=== PATIENT | female | born 1990 | race African-American/Black ===

== ENCOUNTER 2016-09-17 18:47 | Emergency (ER) | payer SELFPAY ==
[2016-09-17] MEDS ORDERED: DIPHENHYDRAMINE HCL 50 MG/ML VIAL IV ONE (19:12)
[2016-09-17] MEDS ORDERED: ONDANSETRON HCL INJ/PF 4 MG/2 ML SDV IV ONE (19:12)
[2016-09-17] MEDS ORDERED: METOCLOPRAMIDE HCL INJ/PF 10 MG/2 ML SDV IV ONE (19:13)
--- NOTE | 2016-09-17 19:20 | ER Document Report ---
ED Medical Screen (RME) - General Chief Complaint: Headache >24 hrs old Stated Complaint: HEADACHE,VOMITING Mode of Arrival: Ambulatory Information source: Patient TRAVEL OUTSIDE OF THE [place] IN LAST 30 DAYS: No - HPI Onset: This morning Onset/Duration: Sudden Context: MILD ACTIVITY @ WORK, ROUTINE. Quality of pain: Achy, Dull Associated Symptoms: Nausea. denies: Chills, Fever Exacerbated by: Denies Relieved by: Denies Similar symptoms previously: No - THIS H.A. DIFFERENT FROM ALL PRIORS. - Related Data Smoking: Non-smoker Frequency of alcohol use: None Drug Abuse: None Allergies/Adverse Reactions: No Known Allergies Allergy (Verified 09/17/16 19:04) Past Medical History - General Information source: Patient - Social History Cigarette use (# per day): No Chew tobacco use (# tins/day): No Lives with: Spouse/Significant other - Past Medical History Cardiac Medical History: Reports: None Denies: Hx Hypertension Pulmonary Medical History: Reports: None EENT Medical History: Reports: None Neurological Medical History: Reports: Hx Migraine. Denies: Hx Seizures Endocrine Medical History: Reports: None. Denies: Hx Diabetes Mellitus Type 1, Hx Diabetes Mellitus Type 2 Renal/ Medical History: Reports: None. Denies: Hx Peritoneal Dialysis Malignancy Medical History: Reports: None GI Medical History: Reports: None Musculoskeltal Medical History: Reports None Psychiatric Medical History: Reports: None Surgical Hx: Negative - Immunizations Hx Diphtheria, Pertussis, Tetanus Vaccination: Yes Review of Systems - Review of Systems Constitutional: No symptoms reported EENT: No symptoms reported Cardiovascular: No symptoms reported Respiratory: No symptoms reported Gastrointestinal: See HPI Female Genitourinary: denies: Musculoskeletal: No symptoms reported Skin: No symptoms reported Neurological/Psychological: See HPI Physical Exam - Vital signs Vitals: Temp Pulse Resp BP Pulse Ox 98.1 F 75 18 115/82 100 09/17/16 18:54 09/17/16 18:54 09/17/16 18:54 09/17/16 18:54 09/17/16 18:54 Interpretation: Normal. No: Tachycardic, Tachypneic, Febrile - General General appearance: Appears well, Alert In distress: None - HEENT Head: Normocephalic Eyes: Normal Conjunctiva: Normal Ears: Normal Nasal: Normal Mouth/Lips: Normal Mucous membranes: Normal Neck: Supple - Respiratory Respiratory status: No respiratory distress - Cardiovascular Rhythm: Regular - Neurological Neuro grossly intact: Yes Cognition: Normal Orientation: AAOx4 - Psychological Associated symptoms: Normal affect, Normal mood - Skin Skin Temperature: Warm Skin Moisture: Dry Skin Color: Normal Skin Turgor: Elastic Course - Vital Signs Vital signs: Temp Pulse Resp BP Pulse Ox 98.1 F 75 18 115/82 100 09/17/16 18:54 09/17/16 18:54 09/17/16 18:54 09/17/16 18:54 09/17/16 18:54
[2016-09-17] MEDS ORDERED: ONDANSETRON 4 MG TAB.RAPDIS PO ONE (20:17)
--- NOTE | 2016-09-17 20:23 | ER Document Report ---
ED Headache - General Chief Complaint: Headache >24 hrs old Stated Complaint: HEADACHE,VOMITING Mode of Arrival: Ambulatory Information source: Patient Notes: This is a 26-year-old female who presents to the ER for evaluation of headache. She has a prior history of migraines and this headache is similar except that it has lasted longer than her migraines normally do. Her headache began about 9 AM yesterday while she was at work. She states that it began gradually and got worse throughout the day. It is described as a right sided headache that is pounding and throbbing in nature. She has had some associated nausea and vomiting with 2 episodes of emesis today. No fevers or chills. No vision changes. No paresthesias or weakness. She states that she can take Tylenol or Motrin to give her headache but the Tylenol has not helped this time. She states that today her headache is better than yesterday but she still reports pain 4/10 TRAVEL OUTSIDE OF THE [place] IN LAST 30 DAYS: No - Related Data Allergies/Adverse Reactions: No Known Allergies Allergy (Verified 09/17/16 19:04) Past Medical History - General Information source: Patient - Social History Smoking Status: Unknown if Ever Smoked Cigarette use (# per day): No Chew tobacco use (# tins/day): No Frequency of alcohol use: None Drug Abuse: None Lives with: Spouse/Significant other Family History: Reviewed & Not Pertinent, CAD, Hyperlipidemia, Hypertension Patient has suicidal ideation: No Patient has homicidal ideation: No - Past Medical History Cardiac Medical History: Reports: None Denies: Hx Hypertension Pulmonary Medical History: Reports: None EENT Medical History: Reports: None Neurological Medical History: Reports: Hx Migraine. Denies: Hx Seizures Endocrine Medical History: Reports: None. Denies: Hx Diabetes Mellitus Type 1, Hx Diabetes Mellitus Type 2 Renal/ Medical History: Reports: None. Denies: Hx Peritoneal Dialysis Malignancy Medical History: Reports: None GI Medical History: Reports: None Musculoskeltal Medical History: Reports None Psychiatric Medical History: Reports: None Surgical Hx: Negative - Immunizations Hx Diphtheria, Pertussis, Tetanus Vaccination: Yes Hx Pneumococcal Vaccination: 02/14/15 Review of Systems - Review of Systems Notes: REVIEW OF SYSTEMS: CONSTITUTIONAL : Denies fever, chills, or sweats. Denies recent illness. EENT: Denies eye, ear, throat, or mouth pain or symptoms. Denies nasal or sinus congestion. CARDIOVASCULAR: Denies chest pain. RESPIRATORY: Denies cough, cold, or chest congestion. Denies shortness of breath, difficulty breathing, or wheezing. GASTROINTESTINAL: Denies abdominal pain. Otherwise as per history of present illness GENITOURINARY: Denies difficulty urinating, painful urination, burning, frequency, or blood in urine. MUSCULOSKELETAL: Denies neck or back pain or joint pain or swelling. SKIN: Denies rash or skin lesions. HEMATOLOGIC : Denies easy bruising or bleeding. LYMPHATIC: Denies swollen, enlarged glands. NEUROLOGICAL: Denies altered mental status or loss of consciousness. Otherwise as per history of present illness PSYCHIATRIC: Denies anxiety or stress or depression. ALL OTHER SYSTEMS REVIEWED AND NEGATIVE. Physical Exam - Vital signs Vitals: Temp Pulse Resp BP Pulse Ox 98.1 F 75 18 115/82 100 09/17/16 18:54 09/17/16 18:54 09/17/16 18:54 09/17/16 18:54 09/17/16 18:54 - Notes Notes: PHYSICAL EXAMINATION: GENERAL: Well-appearing, well-nourished and in no acute distress. Pleasant and conversant HEAD: Atraumatic, normocephalic. EYES: Pupils equal round and reactive to light, no photophobia, extraocular movements intact, sclera anicteric, conjunctiva are normal. ENT: nares patent, oropharynx clear without exudates. Moist mucous membranes. NECK: Normal range of motion, supple without lymphadenopathy LUNGS: Breath sounds clear to auscultation bilaterally and equal. No wheezes rales or rhonchi. HEART: Regular rate and rhythm without murmurs ABDOMEN: Soft, nontender, normoactive bowel sounds. No guarding, no rebound. No masses appreciated. EXTREMITIES: Normal range of motion, no pitting or edema. No cyanosis. NEUROLOGICAL: Cranial nerves grossly intact. Normal speech, normal gait. No gross focal motor or sensory deficits appreciated. PSYCH: Normal mood, normal affect. SKIN: Warm, Dry, normal turgor, no rashes or lesions noted. Course - Re-evaluation Re-evalutation: 09/17/16 20:[address] reviewed, negative. Patient has an intact, nonfocal neuro exam and is very well appearing. She had been ordered Reglan and Benadryl by the provider in triage, however she is driving and caring for her children and so she declined the medication. 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 Will provide prescription for fioricet for home and pt encouraged to follow up with PCP. We discussed strict return precautions to include increased pain, fever, numbness/weakness, or worsening symptoms or concerns. - Vital Signs Vital signs: Temp Pulse Resp BP Pulse Ox 98.7 F 68 18 109/81 100 09/17/16 21:00 09/17/16 21:00 09/17/16 21:00 09/17/16 21:00 09/17/16 21:00 - Diagnostic Test Radiology reviewed: Reports reviewed - CT head negative Discharge - Discharge Clinical Impression: Migraine headache Qualifiers: Migraine type: unspecified Status migrainosus presence: without status migrainosus Intractability: not intractable Qualified Code(s): G43.909 - Migraine, unspecified, not intractable, without status migrainosus Condition: Stable Disposition: HOME, SELF-CARE Additional Instructions: Migraine Headache The physician feels that your symptoms are due to a migraine attack. Migraines are caused by changes in the blood vessels of the head. Arteries go into spasm, often causing warning symptoms that a headache may begin soon. As the spasm goes away, the vessels dilate and throb, causing the pounding pain of a migraine headache. Migraines often cause nausea and vomiting. The treatment of headaches varies with severity and cause of pain. Not all headaches need pain shots -- in fact, there is evidence that using narcotics for headaches may make them worse in the long run. The physician will determine the therapy that's in your best interest for this particular headache. Medications are available that may prevent migraines, or stop them as they first occur. If one medication is not helpful, try another. If migraines are frequent, be patient -- follow the doctor's recommendations. Call the physician if you are worsening, or if new symptoms arise. REGLAN (METOCLOPRAMIDE): Reglan has been prescribed. This medicine affects the stomach and intestines. It can be used to treat nausea and vomiting, to prevent reflux of stomach acid up into the esophagus, or to increase the contractions of the stomach and intestines. It is often prescribed for esophagitis, and for paralysis of the stomach in diabetics. Reglan can cause either mild restlessness or drowsiness. You should contact the doctor at once if you become extremely restless, anxious, or cannot sleep, or if you develop uncontrollable motions of the lips, tongue, or jaw. Do not take alcohol with this medicine. Do not drive or operate machinery until you have been taking this medicine long enough to know how it affects you. Call the doctor if you develop abdominal pains, lightheadedness, black stool, or blood in the stool or vomitus. USE OF DIPHENHYDRAMINE: Diphenhydramine (Benadryl) is an antihistamine and has been recommended to help treat your headache and to prevent side effects of other medications used to treat headaches. The medication can be repeated four times daily. Age Elixir (12.5 mg/tsp) 25 mg pill adult 1-2 tabs Antihistamines may cause drowsiness, especially with the first dose. Do not operate machinery or drive while under the effects of the medication. Do not combine the medication with alcohol, or with any other medication without talking to your doctor. FOLLOW-UP CARE: If you have been referred to a physician for follow-up care, call the physician s office for an appointment as you were instructed or within the next two days. If you experience worsening or a significant change in your symptoms, notify the physician immediately or return to the Emergency Department at any time for re-evaluation. Prescriptions: Diphenhydramine HCl [Benadryl 25 mg Capsule] 25 mg PO Q4H PRN #15 capsule PRN Reason: Metoclopramide HCl [Reglan 10 mg Tablet] 10 mg PO Q8 PRN #15 tablet PRN Reason: Forms: Return to Work
[2016-09-17 21:10] VITALS: BP 109/81
== END 2016-09-17 21:05 | disposition home or self-care (01) ==
LOC: ER 18:47
DX: G43.909 Migraine, unspecified, not intractable, without status migrainosus (principal); R11.10 Vomiting, unspecified
CPT/HCPCS: 99284; 70450; S0119

== ENCOUNTER → 2016-10-13 | Outpatient (CLI) | payer SELFPAY | LOC: OD 16:52 | PROVIDERS: ATTEND Specialist | DX: O26.899 Other specified pregnancy related conditions, unspecified trimester (principal); R10.2 Pelvic and perineal pain | CPT/HCPCS: 36415; 84702 ==

== ENCOUNTER 2016-10-18 08:23 | Emergency (ER) | payer SELFPAY ==
[2016-10-18 09:35] LABS: ABSOLUTE LYMPHOCYTES (AUTO) 1.7 10^3/uL (0.5-4.7); ABSOLUTE MONOCYTES (AUTO) 0.3 10^3/uL (0.1-1.4); ABSOLUTE NEUT (AUTO) 2.4 10^3/uL (1.7-8.2); APPEARANCE,URINE CLEAR; BASOPHILS % (AUTO) 0.5 % (0-2); BILIRUBIN,URINE NEGATIVE (NEGATIVE); EOSINOPHILS % (AUTO) 0.7 % (0-6); GLUCOSE, URINE NEGATIVE (NEGATIVE); KETONES,URINE NEGATIVE (NEGATIVE); LEUKOCYTE ESTERASE,URINE NEGATIVE (NEGATIVE); LYMPHOCYTES % (AUTO) 37.6 % (13-45); MEAN CORPUSCULAR HEMOGLOBIN 31.2 pg (27.0-33.4); MEAN CORPUSCULAR HGB CONC 33.4 g/dL (32.0-36.0); MEAN CORPUSCULAR VOLUME 93 fl (80-97); MONOCYTES % (AUTO) 7.5 % (3-13); NITRITE,URINE NEGATIVE (NEGATIVE); PROTEIN,URINE NEGATIVE (NEGATIVE); RED BLOOD COUNT 4.18 10^6/uL (3.72-5.28); RED CELL DISTRIBUTION WIDTH 15.2 % (11.5-14.0); SEGMENTED NEUTROPHILS % (AUTO) 53.7 % (42-78); URINE SPECIFIC GRAVITY 1.019; UROBILINOGEN,URINE NEGATIVE mg/dL (<2.0); WHITE BLOOD COUNT 4.5 10^3/uL (4.0-10.5)
[2016-10-18 09:47] LABS: ALANINE AMINOTRANSFERASE 22 U/L (9-52); ALBUMIN 4.5 g/dL (3.5-5.0); ALKALINE PHOSPHATASE 61 U/L (38-126); ANION GAP 10 (5-19); ASPARTATE AMINO TRANSFERASE 15 U/L (14-36); BILIRUBIN,DIRECT 0.2 mg/dL (0.0-0.4); BILIRUBIN,TOTAL 0.6 mg/dL (0.2-1.3); BLOOD UREA NITROGEN 12 mg/dL (7-20); CALCIUM 9.7 mg/dL (8.4-10.2); CARBON DIOXIDE 23 mmol/L (22-30); CHLORIDE 103 mmol/L (98-107); CREATININE RESULT 0.69 mg/dL (0.52-1.25); GLUCOSE 107 mg/dL (75-110); LIPASE 66.2 U/L (23-300); POTASSIUM 3.7 mmol/L (3.6-5.0); SODIUM 136.2 mmol/L (137-145); TOTAL PROTEIN 8.1 g/dL (6.3-8.2)
--- NOTE | 2016-10-18 12:31 | RADIOLOGY REPORT (SQ) ---
EXAM DESCRIPTION: U/S OB TRANSVAG W/DOPPLER COMPLETED DATE/TIME: 10/18/2016 12:17 pm REASON FOR STUDY: +preg LLQ pain COMPARISON: 09/30/2015. TECHNIQUE: Transvaginal static and realtime grayscale images acquired of the pelvis. Additional tonia cted spectral and color Doppler images recorded. All images stored on PACs. [id number] LIMITATIONS: None. FINDINGS: FETUS: Living intrauterine . EGA: 6 week 0 day ROSALINA: 06/13/2017 FHR: 106 beats per minute. SUBCHORIONIC BLEED: Yes. SIZE OF BLEED: 1.9 cm maximal dimension. UTERUS: No masses. No anomalies. CERVICAL LENGTH: 3.2 cm. Closed. RIGHT ADNEXA: Normal ovary with normal vascular flow. Trace right periadnexal free fluid. No adnexal masses. LEFT ADNEXA: Normal ovary with normal vascular flow. No adnexal free fluid. Hypoechoic 2.5 cm presumed corpus luteum. FREE FLUID: None. OTHER: No other significant finding. IMPRESSION: LIVING INTRAUTERINE . EGA 6 week 0 day. Small subchorionic hematoma. Trimester of : First - 0 to 13 weeks. TECHNICAL DOCUMENTATION: JOB ID: [id number] [employer]- All Rights Reserved
[2016-10-18 12:57] VITALS: BP 111/44
--- NOTE | 2016-10-18 13:18 | ER Document Report ---
ED General - General Chief Complaint: Abdominal Pain Stated Complaint: ABDOMINAL PAIN Time Seen by Provider: 10/18/16 09:36 TRAVEL OUTSIDE OF THE [place] IN LAST 30 DAYS: No - HPI Patient complains to provider of: Vaginal spotting abdominal cramping left lower quadrant Notes: There is a with 1 miscarriage in the past coming in for left lower quadrant abdominal cramping and vaginal spotting. Patient denies fever chills nausea vomiting denies any recent intercourse or any objects inserted into her vagina. States light spotting. - Related Data Allergies/Adverse Reactions: No Known Allergies Allergy (Verified 10/18/16 08:28) Past Medical History - Social History Smoking Status: Unknown if Ever Smoked Family History: Reviewed & Not Pertinent, CAD, Hyperlipidemia, Hypertension Patient has suicidal ideation: No Patient has homicidal ideation: No - Past Medical History Cardiac Medical History: Denies: Hx Hypertension Neurological Medical History: Reports: Hx Migraine. Denies: Hx Seizures Endocrine Medical History: Denies: Hx Diabetes Mellitus Type 1, Hx Diabetes Mellitus Type 2 Renal/ Medical History: Denies: Hx Peritoneal Dialysis - Immunizations Hx Diphtheria, Pertussis, Tetanus Vaccination: Yes Hx Pneumococcal Vaccination: 02/14/15 Review of Systems - Review of Systems Constitutional: No symptoms reported EENT: No symptoms reported Cardiovascular: No symptoms reported Respiratory: No symptoms reported Gastrointestinal: No symptoms reported Genitourinary: No symptoms reported Female Genitourinary: Vaginal bleeding Musculoskeletal: No symptoms reported Skin: No symptoms reported Hematologic/Lymphatic: No symptoms reported Neurological/Psychological: No symptoms reported Physical Exam - Vital signs Vitals: Temp Pulse Resp BP Pulse Ox 98.6 F 78 16 115/63 100 10/18/16 08:27 10/18/16 08:27 10/18/16 08:27 10/18/16 08:27 10/18/16 08:27 Interpretation: Normal - General General appearance: Appears well, Alert - HEENT Head: Normocephalic, Atraumatic Eyes: Normal Pupils: PERRL - Respiratory Respiratory status: No respiratory distress Chest status: Nontender Breath sounds: Normal Chest palpation: Normal - Cardiovascular Rhythm: Regular Heart sounds: Normal auscultation Murmur: No - Abdominal Inspection: Normal Distension: No distension Bowel sounds: Normal Tenderness: Nontender Organomegaly: No organomegaly - Back Back: Normal, Nontender - Extremities General upper extremity: Normal inspection, Nontender, Normal color, Normal ROM , Normal temperature General lower extremity: Normal inspection, Nontender, Normal color, Normal ROM , Normal temperature, Normal weight bearing. No: Luci's sign - Neurological Neuro grossly intact: Yes Cognition: Normal Orientation: AAOx4 [place] Coma Scale Eye Opening: Spontaneous [place] Coma Scale Verbal: Oriented [place] Coma Scale Motor: Obeys Commands [place] Coma Scale Total: 15 Speech: Normal Motor strength normal: LUE, RUE, LLE, RLE Sensory: Normal - Psychological Associated symptoms: Normal affect, Normal mood - Skin Skin Temperature: Warm Skin Moisture: Dry Skin Color: Normal Course - Re-evaluation Re-evalutation: 10/18/16 15:26 Does not reveal any critical etiology. Patient is Rh+. Ultrasound does show an IUP. Patient was educated about threatened miscarriage. - Vital Signs Vital signs: Temp Pulse Resp BP Pulse Ox 98.0 F 78 16 111/44 L 99 10/18/16 12:53 10/18/16 12:53 10/18/16 12:53 10/18/16 12:53 10/18/16 12:53 - Laboratory Result Diagrams: 10/18/16 08:58 10/18/16 08:58 Laboratory results interpreted by me: 10/18/16 10/18/16 08:58 08:58 RDW 15.2 H Sodium 136.2 L Beta HCG, Quant 68849.00 H Discharge - Discharge Clinical Impression: Bleeding in early Instructions: Bleeding During Early ([facility]), ([facility]) Additional Instructions: Please continue to take her vitamins as prescribed. Avoid anything in the vaginaeczematoid no tampons. Light activity. Return to the ER symptoms worsen. Follow-up with her obgyn Follow-up in 48-72 hours for repeat beta hCG testing Forms: Follow-Up Laboratory Testing
== END 2016-10-18 12:57 | disposition home or self-care (01) ==
LOC: ER 08:23
DX: O20.9 Hemorrhage in early pregnancy, unspecified (principal)
CPT/HCPCS: 36415; 76817; 80053; 81001; 83690; 84702; 85025; 86900; 86901; 93976; 99284

== ENCOUNTER → 2017-04-20 | Outpatient (CLI) | payer MEDICAID ==
--- NOTE | 2017-04-20 17:47 | RADIOLOGY REPORT (SQ) ---
EXAM DESCRIPTION: VENOUS UNILATERAL LOWER COMPLETED DATE/TIME: 04/20/2017 5:39 pm REASON FOR STUDY: RLE PAIN M79.604 PAIN IN RIGHT LEG COMPARISON: None. TECHNIQUE: Dynamic and static blackwell scale and color images acquired of the right leg venous system. S elected spectral images acquired with additional compression and augmentation maneuvers. The contrala teral common femoral vein and saphenofemoral junction were also imaged. Images stored on PACS. LIMITATIONS: None. FINDINGS: COMMON FEMORAL: Normal phasicity, compression and augmentation. No visualized echogenic ma terial on blackwell scale. No defects on color images. FEMORAL: Normal compression and augmentation. No visualized echogenic material on blackwell scale. No defe cts on color images. POPLITEAL: Normal compression, augmentation. No visualized echogenic material on blackwell scale. No defec ts on color images. CALF VESSELS: Normal compression, augmentation. No visualized echogenic material on blackwell scale. No de fects on color images. GSV and SSV: Normal compression, augmentation. No visualized echogenic material on blackwell scale. No def ects on color images. ANY DEEP VENOUS INSUFFICIENCY: Not evaluated. ANY EVIDENCE OF POPLITEAL CYST: No. OTHER: No other significant finding. CONTRALATERAL COMMON FEMORAL VEIN AND SAPHENOFEMORAL JUNCTION: Normal phasicity, compression and augmentation. No visualized echogenic material on blackwell scale. No de fects on color images. IMPRESSION: NO EVIDENCE DVT OR SVT IN THE RIGHT LEG. TECHNICAL DOCUMENTATION: JOB ID: [id number] [employer]- All Rights Reserved
== END ==
LOC: SP 17:01
PROVIDERS: ATTEND Midwife
DX: M79.604 Pain in right leg (principal)
CPT/HCPCS: 93971

== ENCOUNTER 2017-05-24 09:17 | Inpatient (IN) | payer MEDICAID ==
[2017-05-24 10:18] LABS: APPEARANCE,URINE SLIGHTLY-CLOUDY; BILIRUBIN,URINE NEGATIVE (NEGATIVE); COLOR,URINE YELLOW; GLUCOSE, URINE NEGATIVE (NEGATIVE); KETONES,URINE TRACE mg/dL (NEGATIVE); LEUKOCYTE ESTERASE,URINE NEGATIVE (NEGATIVE); NITRITE,URINE NEGATIVE (NEGATIVE); PROTEIN,URINE NEGATIVE (NEGATIVE); URINE SPECIFIC GRAVITY 1.021
[2017-05-24 10:33] LABS: URINE AMPHETAMINES SCREEN NEGATIVE; URINE BARBITURATES SCREEN NEGATIVE; URINE BENZODIAZEPINES SCREEN NEGATIVE; URINE COCAINE SCREEN NEGATIVE; URINE MARIJUANA (THC) SCREEN NEGATIVE; URINE METHADONE SCREEN NEGATIVE; URINE PHENCYCLIDINE SCREEN NEGATIVE
[2017-05-24 11:06] LABS: INTERNATIONAL RATION (INR) 0.92
[2017-05-24 11:07] LABS: FIBRINOGEN 528 mg/dL (209-497); PARTIAL THROMBOPLASTIN TIME 25.7 SEC (23.5-35.8)
[2017-05-24 11:14] LABS: ABSOLUTE LYMPHOCYTES (AUTO) 1.5 10^3/uL (0.5-4.7); ABSOLUTE MONOCYTES (AUTO) 0.4 10^3/uL (0.1-1.4); ABSOLUTE NEUT (AUTO) 4.3 10^3/uL (1.7-8.2); BASOPHILS % (AUTO) 0.2 % (0-2); EOSINOPHILS % (AUTO) 0.3 % (0-6); HEMATOCRIT 31.4 % (36.0-47.0); HEMOGLOBIN 10.2 g/dL (12.0-15.5); LYMPHOCYTES % (AUTO) 24.3 % (13-45); MEAN CORPUSCULAR HEMOGLOBIN 29.4 pg (27.0-33.4); MEAN CORPUSCULAR HGB CONC 32.6 g/dL (32.0-36.0); MEAN CORPUSCULAR VOLUME 90 fl (80-97); MONOCYTES % (AUTO) 6.8 % (3-13); PLATELET COUNT 195 10^3/uL (150-450); RED BLOOD COUNT 3.48 10^6/uL (3.72-5.28); RED CELL DISTRIBUTION WIDTH 13.8 % (11.5-14.0); SEGMENTED NEUTROPHILS % (AUTO) 68.4 % (42-78); TOTAL CELLS COUNTED % (AUTO) 100 %; WHITE BLOOD COUNT 6.2 10^3/uL (4.0-10.5)
--- NOTE | 2017-05-24 12:50 | RADIOLOGY REPORT (SQ) ---
EXAM DESCRIPTION: U/S OB LIMITED COMPLETED DATE/TIME: 05/24/2017 12:18 pm REASON FOR STUDY: placenta rule out abruption COMPARISON: No previous this TECHNIQUE: Limited portable transabdominal grayscale ultrasound for evaluation of specific requested obstetrical parameters. LIMITATIONS: None. FINDINGS: Fundal posterior placenta, grade 2. No gross abruption. FHR: 121 beats per minute. PRESENTATION: Cephalic OTHER: No other significant findings. IMPRESSION: LIMITED OBSTETRICAL ULTRASOUND WITH MEASURED PARAMETERS DELINEATED ABOVE. Trimester of : Third trimester - 28 weeks to delivery. TECHNICAL DOCUMENTATION: JOB ID: [id number] [employer]- All Rights Reserved
[2017-05-24 14:32] LABS: FETAL RBC COUNT 0
[2017-05-24 14:34] LABS: KB INTERPRETATION NEGATIVE (NEGATIVE)
[2017-05-24] MEDS ORDERED: OXYTOCIN/NORMAL SALINE 20 UNIT/1,000 ML RTUINJ IV PRN ×2 (16:18→22:10)
[2017-05-24] MEDS ORDERED: DINOPROSTONE 10 MG VAGINAL INSERT.SR PV PRN (16:18)
[2017-05-24] MEDS ORDERED: RINGERS SOLUTION,LACTATED 300 ML IV ONE (16:18)
[2017-05-24] MEDS ORDERED: RINGERS SOLUTION,LACTATED 1,000 ML IV PRN (16:18)
[2017-05-24] MEDS ORDERED: MISOPROSTOL 0.2 MG TABLET ONE (16:23)
[2017-05-24] MEDS ORDERED: EPHEDRINE SULFATE INJ 50 MG/1 ML AMPULE ONE (16:24)
[2017-05-24] MEDS ORDERED: OXYTOCIN/NORMAL SALINE 0 UNIT/0 ML RTUINJ ONE (16:24)
[2017-05-24] MEDS ORDERED: LIDOCAINE 1% INJ-PF (10 MG/ML) 30 ML SDV ONE (16:24)
[2017-05-24] MEDS ORDERED: FENTANYL/BUPIVACAINE/NS/PF 200 MCG/100 ML RTUINJ EPI ONE (16:24)
[2017-05-24] MEDS ORDERED: BUPIVACAINE HCL 0.25 % INJ/PF (2.5 MG/1 ML) 30 ML VIAL ONE (16:24)
[2017-05-24 17:09] LABS: ABSOLUTE LYMPHOCYTES (AUTO) 1.5 10^3/uL (0.5-4.7); ABSOLUTE MONOCYTES (AUTO) 0.4 10^3/uL (0.1-1.4); ABSOLUTE NEUT (AUTO) 5.5 10^3/uL (1.7-8.2); BASOPHILS % (AUTO) 0.2 % (0-2); HEMATOCRIT 29.1 % (36.0-47.0); HEMOGLOBIN 9.6 g/dL (12.0-15.5); LYMPHOCYTES % (AUTO) 20.1 % (13-45); MEAN CORPUSCULAR HEMOGLOBIN 29.6 pg (27.0-33.4); MEAN CORPUSCULAR HGB CONC 33.1 g/dL (32.0-36.0); MEAN CORPUSCULAR VOLUME 90 fl (80-97); MONOCYTES % (AUTO) 5.4 % (3-13); PLATELET COUNT 179 10^3/uL (150-450); RED BLOOD COUNT 3.25 10^6/uL (3.72-5.28); SEGMENTED NEUTROPHILS % (AUTO) 74.3 % (42-78); TOTAL CELLS COUNTED % (AUTO) 100 %; WHITE BLOOD COUNT 7.4 10^3/uL (4.0-10.5)
[2017-05-24] MEDS ORDERED: OXYTOCIN/NORMAL SALINE 20 UNIT/1,000 ML RTUINJ ONE (17:36)
[2017-05-24] MEDS ORDERED: ZOLPIDEM TARTRATE 5 MG TABLET PO PRN (22:10)
[2017-05-24] MEDS ORDERED: MEASLES,MUMPS&RUBELLA VACC/PF 0.5 ML VIAL SUBCUT PRN (22:10)
[2017-05-24] MEDS ORDERED: DIPHENHYDRAMINE HCL 25 MG CAPSULE PO PRN (22:10)
[2017-05-24] MEDS ORDERED: PROMETHAZINE HCL INJ 25 MG/1 ML VIAL IV PRN (22:10)
[2017-05-24] MEDS ORDERED: DIPH/PERTUSS(ACELL)/TETANUS VAC/PF 0.5 ML SYR (>=10YO) IM PRN (22:10)
[2017-05-24] MEDS ORDERED: DIBUCAINE 1% OINTMENT 28 GM TP PRN (22:10)
[2017-05-24] MEDS ORDERED: ACETAMINOPHEN 650 MG SUPP.RECT PR PRN (22:10)
[2017-05-24] MEDS ORDERED: PROMETHAZINE HCL 25 MG SUPP.RECT PR PRN (22:10)
[2017-05-24] MEDS ORDERED: NA PHOS,M-B/NA PHOS,DI-BA (ADULT) 133 ML ENEMA PR PRN (22:10)
[2017-05-24] MEDS ORDERED: BENZOCAINE/MENTHOL AEROSOL SPRAY 56 ML TOP PRN (22:10)
[2017-05-24] MEDS ORDERED: ACETAMINOPHEN WITH CODEINE #3 TABLET PO PRN (22:10)
[2017-05-24] MEDS ORDERED: PSEUDOEPHEDRINE HCL 30 MG TABLET PO PRN (22:10)
[2017-05-24] MEDS ORDERED: GLYCERIN/WITCH HAZEL LEAF 1 EACH MED..PAD TP PRN (22:10)
[2017-05-24] MEDS ORDERED: MAGNESIUM HYDROXIDE SUSP 30 ML UDCUP PO PRN (22:10)
[2017-05-24] MEDS ORDERED: PROMETHAZINE HCL 25 MG TABLET PO PRN (22:10)
[2017-05-24] MEDS ORDERED: ACETAMINOPHEN WITH CODEINE #3 TABLET ONE (23:40)
[2017-05-24] MEDS ORDERED: ACETAMINOPHEN 325 MG TABLET ONE (23:56)
--- NOTE | 2017-05-25 00:19 | Admission Physical ---
Datetime Report Generated by CPN: 05/25/2017 00:19 CURRENT ADMISSION Chief Complaint: Uterine Contractions Indication for Induction: Term, Intrauterine Admit Plan: Admit to Unit; Initiate Labor Augmentation Protocol ALLERGIES Medication Allergies: Yes Medication Allergies: ibuprofen (05/24/2017) Medication Allergies: No Known Allergies (10/18/2016) Medication Allergies: No Known Allergies (01/04/2015) Latex: Latex Allergies Food Allergies: NONE Environmental Allergies: NONE OBSTETRICAL HISTORY EDC: 06/07/2017 00:00 : 4 Para: 3 Term: 3 : 0 SAB: 0 IAB: 0 Ectopic: 0 Livin Cesareans: 0 VBACs: 0 Multiple Births: 0 Gestational Diabetes: Yes Rh Sensitization: No Incompetent Cervix: No SVEN: No Infertility: No ART Treatment: No Uterine Anomaly: No IUGR: No Hx Previous C/S: No Macrosomia: No Hx Loss/Stillborn: No PIH: No Hx : No Placenta Previa/Abruption: No Depression/PP Depression: No PTL/PROM: Yes Post Hemorrhage: No Current Procedures: Ultrasound Obstetrical History Comments: G3- PTL- DEL @ TERM SEE RECORDS Alcohol: No Marijuana : No Cocaine: No Other Illicit Drugs: No Cigarettes: Never Smoker. 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 Heart Disease: No Hosp/Surgery: Yes Autoimmune Disorder: No Anesthetic Complications: No Kidney Disease: No Abnormal Pap Smear: No Neuro/Epilepsy: No Psychiatric Disorders: No Other Medical Diseases: No Hepatitis/Liver Disease: No Significant Family History: No Varicosities/Phlebitis: No Trauma/Violence : No Thyroid Dysfunction: No Medical History Comments: CHILDBIRTH INFECTIOUS HISTORY Gonorrhea: No Genital Herpes: No Chlamydia: No Tuberculosis: No Syphilis: No Hepatitis: No HIV/AIDS Exposure: No Rash or Viral Illness: No HPV: No PHYSICAL EXAM General: Normal HEENT: Normal Neurologic: Normal Thyroid: Normal Heart: Normal Lungs: Normal Breast: Normal Back: Normal Abdomen: Normal Genitourinary Exam: Normal Extremities: Normal DTRs: Normal Pelvic Type: Adequate Vital Signs: Reviewed VAGINAL EXAM Dilatation: 4 Effacement: 80 Station: 0 MEMBRANES Membranes: Ruptured Amniotic Fluid Color: Bloody FETUS A EGA: 38.0 Monitoring: External US FHR- Baseline: 130 Variability: Moderate 6-25bpm Accelerations: 15X15 Decelerations: None FHR Category: Category I Presentation: Vertex Admit Comment: 27 yo EDC 06/07/2017 EGA 38 weeks s/p fall on ice this morning labs drawn- wnl hx; G1 with cleft lip and palate seen by MFM for eval 1 hour gtt elevated- no 3 hour/ taking fasting and rbs reports wnl increased contractions and pelvic pain ctx regular 2-[address] Ortiz admit AROM - bloody no bloody show start pitocin per augmentation protocol pain mgmt prn anticipate PLANS FOR LABOR AND DELIVERY Labor and Delivery: None Pain Management: Epidural Feeding Preference: Breast Benefit of Breast Feed Discussed: Yes Circumcision: Yes INFORMED CONSENT Assignment: Lima Brown MD Signature: with User ID: [email or web address] : with User ID: [email or web address]
[2017-05-25] MEDS ORDERED: ACETAMINOPHEN 325 MG TABLET PO PRN (00:38)
[2017-05-25 07:25] LABS: HEMATOCRIT 23.5 % (36.0-47.0); MEAN CORPUSCULAR HGB CONC 33.6 g/dL (32.0-36.0); MEAN CORPUSCULAR VOLUME 89 fl (80-97); PLATELET COUNT 155 10^3/uL (150-450); RED BLOOD COUNT 2.63 10^6/uL (3.72-5.28); RED CELL DISTRIBUTION WIDTH 14.3 % (11.5-14.0); WHITE BLOOD COUNT 9.5 10^3/uL (4.0-10.5)
[2017-05-25 07:31] LABS: HEMOGLOBIN 7.9 g/dL (12.0-15.5)
--- NOTE | 2017-05-25 09:10 | PDOC PROGRESS REPORT ---
Subjective-OB Subjective: Post Delivery Day: 27 year old. Denies any needs at this time Doing well, resting in room, breast feeding, scant bleeding, no c/o Physical Exam (OB) Vital Signs: Temp Pulse Resp BP Pulse Ox 98.1 F 79 16 108/62 98 05/25/17 08:07 05/25/17 08:07 05/25/17 08:07 05/25/17 08:07 05/25/17 08:07 Intake & Output 05/24/17 05/25/17 05/26/17 06:59 06:59 06:59 Weight 70.15 kg - Lochia Lochia Amount: Scant < 10 ml Lochia Color: Rubra/Red - Abdomen Description: Tender, Soft Hernia Present: No Fundal Description: Firm, Midline Fundal Height: u/u - u/2 Objective-Diagnostic Laboratory: 05/25/17 07:02 05/24/17 05/24/17 05/24/17 09:30 10:52 15:34 WBC 6.2 7.4 RBC 3.48 L 3.25 L Hgb 10.2 L 9.6 L Hct 31.4 L 29.1 L MCV 90 90 MCH 29.4 29.6 MCHC 32.6 33.1 RDW 13.8 14.0 Plt Count 195 179 Seg Neutrophils % 68.4 74.3 Lymphocytes % 24.3 20.1 Monocytes % 6.8 5.4 Eosinophils % 0.3 0.0 Basophils % 0.2 0.2 Absolute Neutrophils 4.3 5.5 Absolute Lymphocytes 1.5 1.5 Absolute Monocytes 0.4 0.4 Absolute Eosinophils 0.0 0.0 Absolute Basophils 0.0 0.0 Urine Color YELLOW Urine Appearance SLIGHTLY-CLOUDY Urine pH 6.0 Ur Specific [place] 1.021 Urine Protein NEGATIVE Urine Glucose (UA) NEGATIVE Urine Ketones TRACE H Urine Blood NEGATIVE Urine Nitrite NEGATIVE Ur Leukocyte Esterase NEGATIVE Blood Type Antibody Screen 05/24/17 05/25/17 15:34 07:02 WBC 9.5 RBC 2.63 L Hgb 7.9 L Hct 23.5 L MCV 89 MCH 30.0 MCHC 33.6 RDW 14.3 H Plt Count 155 Seg Neutrophils % Lymphocytes % Monocytes % Eosinophils % Basophils % Absolute Neutrophils Absolute Lymphocytes Absolute Monocytes Absolute Eosinophils Absolute Basophils Urine Color Urine Appearance Urine pH Ur Specific [place] Urine Protein Urine Glucose (UA) Urine Ketones Urine Blood Urine Nitrite Ur Leukocyte Esterase Blood Type O POSITIVE Antibody Screen NEGATIVE Assessment and Plan(PN) - Assessment and Plan (1) Normal vaginal delivery Is this a current diagnosis for this admission?: Yes (2) Anemia Qualifiers: Anemia type: iron deficiency Is this a current diagnosis for this admission?: Yes - Time Spent with Patient Time with patient: Less than 15 minutes Medications reviewed and adjusted accordingly: Yes - Disposition Anticipated Discharge: Home Within: within 24 hours
[2017-05-25] MEDS: PRENATAL VITAMIN W DHA CAPSULE PO SCH (09:48)
[2017-05-25] MEDS: FERROUS SULFATE 325 MG TABLET PO SCH ×2 (09:49→17:27)
[2017-05-25] MEDS: SENNOSIDES/DOCUSATE 8.6-50 MG 1 EACH TABLET PO SCH (09:49)
[2017-05-25] MEDS: DOCUSATE SODIUM 100 MG CAPSULE PO SCH ×2 (09:49→17:27)
[2017-05-25] MEDS: FAMOTIDINE 20 MG TABLET PO SCH ×2 (09:51→21:14)
[2017-05-26 04:56] LABS: ABSOLUTE EOSINOPHILS # (AUTO) 0.1 10^3/uL (0.0-0.6); ABSOLUTE MONOCYTES (AUTO) 0.9 10^3/uL (0.1-1.4); ABSOLUTE NEUT (AUTO) 6.1 10^3/uL (1.7-8.2); BASOPHILS % (AUTO) 0.1 % (0-2); EOSINOPHILS % (AUTO) 0.9 % (0-6); HEMATOCRIT 26.3 % (36.0-47.0); HEMOGLOBIN 8.9 g/dL (12.0-15.5); LYMPHOCYTES % (AUTO) 29.9 % (13-45); MEAN CORPUSCULAR HEMOGLOBIN 30.3 pg (27.0-33.4); MEAN CORPUSCULAR HGB CONC 33.9 g/dL (32.0-36.0); MEAN CORPUSCULAR VOLUME 89 fl (80-97); MONOCYTES % (AUTO) 8.5 % (3-13); PLATELET COUNT 171 10^3/uL (150-450); RED BLOOD COUNT 2.94 10^6/uL (3.72-5.28); RED CELL DISTRIBUTION WIDTH 13.9 % (11.5-14.0); SEGMENTED NEUTROPHILS % (AUTO) 60.6 % (42-78); TOTAL CELLS COUNTED % (AUTO) 100 %; WHITE BLOOD COUNT 10.1 10^3/uL (4.0-10.5)
[2017-05-26] MEDS ORDERED: NORMAL SALINE 500 ML IV ONE (05:30)
--- NOTE | 2017-05-26 06:54 | RADIOLOGY REPORT (SQ) ---
EXAM DESCRIPTION: CTA of the chest per PE protocol with contrast. CLINICAL HISTORY: CHEST PAIN, SOB, POST . COMPARISON: None Available. TECHNIQUE: CTA of the chest obtained following the uncomplicated intravenous administration of 100.1 mL Isovue-370. 3-D/MIP reformatted images of the chest available for evaluation. FINDINGS: Chest: Mediastinal windows demonstrate an adequate contrast bolus. No pulmonary embolus identified. Evaluation of the subsegmental pulmonary arterial branches of the lung bases is somewhat suboptimal due to respiratory motion artifact. Visualized thyroid gland is unremarkable. Great vessels have normal anatomic configuration. No cardiomegaly, coronary artery atherosclerosis, or pericardial effusion. No abnormalities of the esophagus. Scattered mediastinal lymph nodes are not enlarged by CT criteria. Lung windows demonstrate no consolidation, pneumothorax, or pleural effusion. No abnormalities of the visualized trachea or airways. Limited images of the upper abdomen demonstrate no abnormalities of the visualized liver, spleen, pancreas, adrenal glands, or kidneys. No destructive osseous lesions. DLP: 428.34 mGycm IMPRESSION: 1. No pulmonary embolus identified. This exam was performed according to our departmental dose-optimization program, which includes automated exposure control, adjustment of the mA and/or kV according to patient size and/or use of iterative reconstruction technique.
[2017-05-26] MEDS: FERROUS SULFATE 325 MG TABLET PO SCH ×2 (09:18→17:42)
[2017-05-26] MEDS: PRENATAL VITAMIN W DHA CAPSULE PO SCH (09:19)
[2017-05-26] MEDS: SENNOSIDES/DOCUSATE 8.6-50 MG 1 EACH TABLET PO SCH (09:19)
[2017-05-26] MEDS: DOCUSATE SODIUM 100 MG CAPSULE PO SCH ×2 (09:19→17:43)
[2017-05-26] MEDS: FAMOTIDINE 20 MG TABLET PO SCH ×2 (09:19→21:19)
--- NOTE | 2017-05-26 13:47 | PDOC PROGRESS REPORT ---
Subjective-OB Subjective: Post Delivery Day:2 27 year old G4 now P4 s/p ppd2. Episode of shortness of breath in the middle of the night. Ambulated to bathroom this am without difficulty, feeling better this AM, reports she thinks her problem might have been anxiety. Attempting . Denies any needs at this time Physical Exam (OB) Vital Signs: Temp Pulse Resp BP Pulse Ox 98.2 F 82 16 118/73 100 05/26/17 07:28 05/26/17 07:28 05/26/17 07:28 05/26/17 07:28 05/26/17 07:28 Intake & Output 05/25/17 05/26/17 05/27/17 06:59 06:59 06:59 Intake Total 400 Balance 400 Weight 70.15 kg - General General Appearance: Appears well In distress: None - PIH/Pre-Eclampsia DTR's: 2 + Clonus: Negative Headache: Absent Epigastric Pain: No Visual Changes: No - Episiotomy/Laceration Site Condition: N/A - Lochia Lochia Amount: Scant < 10 ml Lochia Color: Rubra/Red - Abdomen Description: Soft, Round Hernia Present: No Fundal Description: Firm, Midline Fundal Height: u/u - u/2 - Respiratory Respiratory Status: No respiratory distress Chest Status: Nontender Breath sounds: Clear - Cardiovascular Rhythm: Regular Heart Sounds: Normal auscultation - Abdominal Inspection: Normal Distension: No distension - Extremities Upper extremity: Normal inspection Lower extremities: Normal inspection - Neurological Cognition: Normal Orientation: AAOx4 - Psychological Associated symptoms: Normal affect, Normal mood Objective-Diagnostic Laboratory: 05/26/17 04:30 05/26/17 04:30 WBC 10.1 RBC 2.94 L Hgb 8.9 L Hct 26.3 L MCV 89 MCH 30.3 MCHC 33.9 RDW 13.9 Plt Count 171 Seg Neutrophils % 60.6 Lymphocytes % 29.9 Monocytes % 8.5 Eosinophils % 0.9 Basophils % 0.1 Absolute Neutrophils 6.1 Absolute Lymphocytes 3.0 Absolute Monocytes 0.9 Absolute Eosinophils 0.1 Absolute Basophils 0.0 Assessment and Plan(PN) - Assessment and Plan (1) Normal vaginal delivery Is this a current diagnosis for this admission?: Yes (2) Shortness of breath Is this a current diagnosis for this admission?: Yes Plan: normal CT, reviewed with Dr. Brown who recommends hospitalist consult at this time and EKG, continue stay (3) Anemia complicating , third trimester Is this a current diagnosis for this admission?: Yes Plan: inc. dietary iron and feso4 bid (4) Gestational diabetes mellitus (GDM) affecting fourth Is this a current diagnosis for this admission?: Yes Plan: routine pp care. f/u at pp visit (5) Tachycardia Is this a current diagnosis for this admission?: Yes Plan: HR up to 140s while ambulating. Normal CT, reviewed with Dr. Brown who recommends hospitalist consult at this time and EKG, continue stay - Time Spent with Patient Time with patient: 15-25 minutes Medications reviewed and adjusted accordingly: Yes - Disposition Anticipated Discharge: Home Within: within 24 hours
[2017-05-26 14:14] LABS: ABSOLUTE LYMPHOCYTES (AUTO) 1.5 10^3/uL (0.5-4.7); ABSOLUTE MONOCYTES (AUTO) 0.5 10^3/uL (0.1-1.4); ABSOLUTE NEUT (AUTO) 8.6 10^3/uL (1.7-8.2); BASOPHILS % (AUTO) 0.1 % (0-2); EOSINOPHILS % (AUTO) 0.1 % (0-6); HEMATOCRIT 25.9 % (36.0-47.0); HEMOGLOBIN 8.9 g/dL (12.0-15.5); MEAN CORPUSCULAR HEMOGLOBIN 30.5 pg (27.0-33.4); MEAN CORPUSCULAR HGB CONC 34.3 g/dL (32.0-36.0); MEAN CORPUSCULAR VOLUME 89 fl (80-97); MONOCYTES % (AUTO) 4.9 % (3-13); PLATELET COUNT 194 10^3/uL (150-450); RED BLOOD COUNT 2.91 10^6/uL (3.72-5.28); RED CELL DISTRIBUTION WIDTH 14.4 % (11.5-14.0); SEGMENTED NEUTROPHILS % (AUTO) 80.9 % (42-78); TOTAL CELLS COUNTED % (AUTO) 100 %; WHITE BLOOD COUNT 10.6 10^3/uL (4.0-10.5)
--- NOTE | 2017-05-26 17:33 | PDOC CONSULTATION ---
Consultation Consult Date: 05/26/17 Attending physician:: FAZAL PATEL Consult reason:: Shortness of breath and dizziness History of Present Illness Admission Date/PCP: 05/24/17 15:17 AIMEE GUAMAN CNM Patient complains of: Shortness of breath and dizziness. History of Present Illness: JASEN WARNER is a 27 year old female who recently delivered a healthy baby boy experienced a complaint of shortness of breath and chest pain. Patient 's primary doctor ordered a CTA which was normal. Patient states that when she was walking her baby back to the nursery she felt dizzy but did not pass out or lose consciousness. Nursing states that patient was ambulating well and satting 100% however her heart rate was in the 140s. Patient had an EKG that demonstrated normal sinus rhythm with no definite abnormalities noted. Patient states that she wonders if she is experiencing anxiety attacks because she recounts a event where her child was brought to her morn and she became very nervous. Past Medical History Medical History: None Cardiac Medical History: Reports: None Denies: Coronary Artery Disease, Hypertension Neurological Medical History: Reports: Migraine Denies: Seizures Endocrine Medical History: Denies: Diabetes Mellitus Type 1, Diabetes Mellitus Type 2 Hematology: Reports: Anemia Past Surgical History Past Surgical History: Reports: None Social History Information Source: Patient Smoking Status: Unknown if Ever Smoked Frequency of Alcohol Use: None Drugs: None - Advance Directive Resuscitation Status: Full Code Family History Family History: Reviewed & Not Pertinent, CAD, Hyperlipidemia, Hypertension Parental Family History Reviewed: Yes Children Family History Reviewed: Yes Sibling(s) Family History Reviewed.: Yes Medication/Allergy Home Medications: Vit No.129/Iron/Folic [ One Daily Tablet] 1 tab PO DAILY Allergies/Adverse Reactions: ibuprofen [From Motrin] Allergy (Verified 05/24/17 10:01) Review of Systems Constitutional: PRESENT: fatigue. ABSENT: chills, fever(s), headache(s), weight gain, weight loss Eyes: ABSENT: visual disturbances Ears: ABSENT: hearing changes Cardiovascular: PRESENT: chest pain, palpitations. ABSENT: dyspnea on exertion , edema, orthropnea Respiratory: ABSENT: cough, hemoptysis Gastrointestinal: ABSENT: abdominal pain, constipation, diarrhea, hematemesis, hematochezia, nausea, vomiting Genitourinary: ABSENT: dysuria, hematuria Musculoskeletal: ABSENT: joint swelling Integumentary: ABSENT: rash, wounds Neurological: ABSENT: abnormal gait, abnormal speech, confusion, dizziness, focal weakness, syncope Psychiatric: ABSENT: anxiety, depression, homidical ideation, suicidal ideation Endocrine: ABSENT: cold intolerance, heat intolerance, polydipsia, polyuria Hematologic/Lymphatic: ABSENT: easy bleeding, easy bruising Physical Exam Vital Signs: Temp Pulse Resp BP Pulse Ox 97.9 F 91 16 105/61 100 05/26/17 15:51 05/26/17 15:51 05/26/17 15:51 05/26/17 15:51 05/26/17 15:51 Intake & Output 05/25/17 05/26/17 05/27/17 06:59 06:59 06:59 Intake Total 400 240 Balance 400 240 Weight 70.15 kg General appearance: PRESENT: no acute distress, well-developed, well-nourished Head exam: PRESENT: atraumatic, normocephalic Eye exam: PRESENT: conjunctiva pink, EOMI. ABSENT: scleral icterus Ear exam: PRESENT: normal external ear exam Mouth exam: PRESENT: moist, tongue midline Neck exam: ABSENT: carotid bruit, JVD, lymphadenopathy, thyromegaly Respiratory exam: PRESENT: clear to auscultation ella. ABSENT: rales, rhonchi, wheezes Cardiovascular exam: PRESENT: RRR. ABSENT: diastolic murmur, rubs, systolic murmur Pulses: PRESENT: normal dorsalis pedis pul Vascular exam: PRESENT: normal capillary refill GI/Abdominal exam: PRESENT: normal bowel sounds, tenderness. ABSENT: distended , guarding, mass, organolmegaly, rebound Rectal exam: PRESENT: deferred Extremities exam: PRESENT: full ROM. ABSENT: calf tenderness, clubbing, pedal edema Musculoskeletal exam: PRESENT: full ROM Neurological exam: PRESENT: alert, awake, oriented to person, oriented to place , oriented to time, oriented to situation, CN II-XII grossly intact. ABSENT: motor sensory deficit Psychiatric exam: PRESENT: appropriate affect, normal mood. ABSENT: homicidal ideation, suicidal ideation Results Laboratory Results: 05/26/17 13:43 05/26/17 05/26/17 04:30 13:43 WBC 10.1 10.6 H RBC 2.94 L 2.91 L Hgb 8.9 L 8.9 L Hct 26.3 L 25.9 L MCV 89 89 MCH 30.3 30.5 MCHC 33.9 34.3 RDW 13.9 14.4 H Plt Count 171 194 Seg Neutrophils % 60.6 80.9 H Lymphocytes % 29.9 14.0 Monocytes % 8.5 4.9 Eosinophils % 0.9 0.1 Basophils % 0.1 0.1 Absolute Neutrophils 6.1 8.6 H Absolute Lymphocytes 3.0 1.5 Absolute Monocytes 0.9 0.5 Absolute Eosinophils 0.1 0.0 Absolute Basophils 0.0 0.0 Impressions: Obstetrics Ultrasound 05/24/17 11:15 IMPRESSION: LIMITED OBSTETRICAL ULTRASOUND WITH MEASURED PARAMETERS DELINEATED ABOVE. Trimester of : Third trimester - 28 weeks to delivery. Chest/Abdomen CTA 05/26/17 00:00 IMPRESSION: 1. No pulmonary embolus identified. This exam was performed according to our departmental dose-optimization program, which includes automated exposure control, adjustment of the mA and/or kV according to patient size and/or use of iterative reconstruction technique. Assessment & Plan - Diagnosis (1) Near syncope Is this a current diagnosis for this admission?: Yes Plan: We will check 2D echo and orthostatics. Patient CTA of chest demonstrated no evidence of PE (2) Shortness of breath Is this a current diagnosis for this admission?: Yes Plan: CT of chest demonstrates no evidence of PE will check orthostatics and 2D echo. (3) Tachycardia Is this a current diagnosis for this admission?: Yes Plan: We will continue to monitor this could be secondary to anxiety. 2D echo pending (4) Anemia Qualifiers: Anemia type: iron deficiency Is this a current diagnosis for this admission?: Yes Plan: Per Ob (5) Normal vaginal delivery Is this a current diagnosis for this admission?: Yes Plan: per OB (6) Anxiety Is this a current diagnosis for this admission?: Yes Plan: Suspect that patient's presentation is most likely secondary to anxiety/panic attacks however will do additional evaluation before making this her final diagnosis. - Time Time Spent: 30 to 50 Minutes Anticipated discharge: Home
--- NOTE | 2017-05-26 18:32 | EKG REPORT ---
SEVERITY:- BORDERLINE ECG - SINUS RHYTHM BORDERLINE T ABNORMALITIES, ANTERIOR LEADS : Confirmed by: James Sherman MD 26-May-2017 18:32:05
[2017-05-27] MEDS: FAMOTIDINE 20 MG TABLET PO SCH (09:47)
[2017-05-27] MEDS: FERROUS SULFATE 325 MG TABLET PO SCH (09:47)
[2017-05-27] MEDS: DOCUSATE SODIUM 100 MG CAPSULE PO SCH (09:47)
[2017-05-27] MEDS: PRENATAL VITAMIN W DHA CAPSULE PO SCH (09:47)
[2017-05-27] MEDS: SENNOSIDES/DOCUSATE 8.6-50 MG 1 EACH TABLET PO SCH (09:47)
--- NOTE | 2017-05-27 10:30 | PDOC PROGRESS REPORT ---
Subjective-OB Subjective: Post Delivery Day: 27 year old. Denies any needs at this time. Ready to go home. No further dizziness. Physical Exam (OB) Vital Signs: Temp Pulse Resp BP Pulse Ox 98.1 F 64 14 98/58 L 100 05/27/17 09:00 05/27/17 09:00 05/27/17 09:00 05/27/17 09:00 05/27/17 09:00 Intake & Output 05/26/17 05/27/17 05/28/17 06:59 06:59 06:59 Intake Total 400 240 Balance 400 240 - PIH/Pre-Eclampsia DTR's: 2 + Clonus: Negative Headache: Absent Epigastric Pain: No Visual Changes: No - Lochia Lochia Amount: Scant < 10 ml Lochia Color: Rubra/Red - Abdomen Description: Soft, Round Hernia Present: No Bowel Sounds: Normoactive Flatus Presence: Present Stool: Yes Fundal Description: Firm, Midline Fundal Height: u/u - u/2 Objective-Diagnostic Laboratory: 05/26/17 13:43 05/26/17 13:43 WBC 10.6 H RBC 2.91 L Hgb 8.9 L Hct 25.9 L MCV 89 MCH 30.5 MCHC 34.3 RDW 14.4 H Plt Count 194 Seg Neutrophils % 80.9 H Lymphocytes % 14.0 Monocytes % 4.9 Eosinophils % 0.1 Basophils % 0.1 Absolute Neutrophils 8.6 H Absolute Lymphocytes 1.5 Absolute Monocytes 0.5 Absolute Eosinophils 0.0 Absolute Basophils 0.0 Assessment and Plan(PN) - Time Spent with Patient Medications reviewed and adjusted accordingly: Yes - Disposition Anticipated Discharge: Home
--- NOTE | 2017-05-27 10:36 | PDOC DISCHARGE SUMMARY ---
Final Diagnosis Discharge Date: 05/27/17 - Final Diagnosis (1) Anemia complicating , third trimester Is this a current diagnosis for this admission?: Yes (2) Anxiety Is this a current diagnosis for this admission?: Yes (3) Delivery normal Is this a current diagnosis for this admission?: Yes (4) Gestational diabetes mellitus (GDM) affecting fourth Is this a current diagnosis for this admission?: Yes (5) Near syncope Is this a current diagnosis for this admission?: Yes (6) Is this a current diagnosis for this admission?: Yes (7) Shortness of breath Is this a current diagnosis for this admission?: Yes (8) Tachycardia Is this a current diagnosis for this admission?: Yes Discharge Data - Discharge Medication Home Medications: Vit No.129/Iron/Folic [ One Daily Tablet] 1 tab PO DAILY Gestational Age: 38.0 wks Reason(s) for Admission: Onset of Labor Procedures: Ultrasound Intrapartum Procedure(s): Spontaneous Vaginal Delivery - [place] Data Baby 1 Male at 1 minute: 8 at 5 minutes: 9 Weight: 2.977 kg Home with Mother: Yes Complications: No - Diagnosis Test Laboratory: Temp Pulse Resp BP Pulse Ox 98.1 F 64 14 98/58 L 100 05/27/17 09:00 05/27/17 09:00 05/27/17 09:00 05/27/17 09:00 05/27/17 09:00 05/24/17 05/24/17 05/24/17 09:30 10:52 15:34 RBC 3.48 L 3.25 L Hgb 10.2 L 9.6 L Hct 31.4 L 29.1 L Urine Opiates Screen NEGATIVE 05/25/17 05/26/17 05/26/17 07:02 04:30 13:43 RBC 2.63 L 2.94 L 2.91 L Hgb 7.9 L 8.9 L 8.9 L Hct 23.5 L 26.3 L 25.9 L Urine Opiates Screen - Discharge information/Instructions Discharge Activity: Activity As Tolerated, Balance Activity w/Rest, Pelvic Rest , Slowly Increase Activity, No tub bath, Walk Frequently Discharge Diet: Regular Disposition: HOME, SELF-CARE Follow up with: [facility] in: 4, Weeks
[2017-05-27 13:11] VITALS: BP 98/58
--- NOTE | 2017-05-27 18:34 | PDOC PROGRESS REPORT ---
Subjective Progress Note for:: 05/27/17 Subjective:: Patient was seen earlier this morning. Patient was doing well no issues Reason For Visit: SLIP FALL UTERINE CONTRACTIONS Physical Exam Vital Signs: Temp Pulse Resp BP Pulse Ox 98.0 F 68 15 98/58 L 100 05/27/17 13:07 05/27/17 13:07 05/27/17 13:07 05/27/17 13:07 05/27/17 13:07 Intake & Output 05/26/17 05/27/17 05/28/17 06:59 06:59 06:59 Intake Total 400 240 200 Balance 400 240 200 Baby 1 Male 2.977 kg General appearance: PRESENT: no acute distress, well-developed, well-nourished Head exam: PRESENT: atraumatic, normocephalic Eye exam: PRESENT: conjunctiva pink, EOMI. ABSENT: scleral icterus Ear exam: PRESENT: normal external ear exam Mouth exam: PRESENT: moist, tongue midline Neck exam: ABSENT: carotid bruit, JVD, lymphadenopathy, thyromegaly Respiratory exam: PRESENT: clear to auscultation ella. ABSENT: rales, rhonchi, wheezes Cardiovascular exam: PRESENT: RRR. ABSENT: diastolic murmur, rubs, systolic murmur Pulses: PRESENT: normal dorsalis pedis pul Vascular exam: PRESENT: normal capillary refill GI/Abdominal exam: PRESENT: normal bowel sounds, tenderness. ABSENT: distended , guarding, mass, organolmegaly, rebound Rectal exam: PRESENT: deferred Extremities exam: PRESENT: full ROM. ABSENT: calf tenderness, clubbing, pedal edema Neurological exam: PRESENT: alert, awake, oriented to person, oriented to place , oriented to time, oriented to situation, CN II-XII grossly intact. ABSENT: motor sensory deficit Psychiatric exam: PRESENT: appropriate affect, normal mood. ABSENT: homicidal ideation, suicidal ideation Skin exam: PRESENT: dry, intact, warm. ABSENT: cyanosis, rash Results Laboratory Results: 05/26/17 13:43 Impressions: Obstetrics Ultrasound 05/24/17 11:15 IMPRESSION: LIMITED OBSTETRICAL ULTRASOUND WITH MEASURED PARAMETERS DELINEATED ABOVE. Trimester of : Third trimester - 28 weeks to delivery. Chest/Abdomen CTA 05/26/17 00:00 IMPRESSION: 1. No pulmonary embolus identified. This exam was performed according to our departmental dose-optimization program, which includes automated exposure control, adjustment of the mA and/or kV according to patient size and/or use of iterative reconstruction technique. Assessment & Plan - Diagnosis (1) Near syncope Is this a current diagnosis for this admission?: Yes Plan: Prostatic's and 2D echo were normal. (2) Shortness of breath Is this a current diagnosis for this admission?: Yes Plan: CT of chest demonstrates no evidence of PE. Orthostatics and 2D echo were normal. (3) Tachycardia Is this a current diagnosis for this admission?: Yes Plan: Resolved. (4) Anemia Qualifiers: Anemia type: iron deficiency Is this a current diagnosis for this admission?: Yes Plan: Per Ob (5) Normal vaginal delivery Is this a current diagnosis for this admission?: Yes Plan: per OB (6) Anxiety Is this a current diagnosis for this admission?: Yes Plan: Suspect the patient's presentation could be partially due to anxiety. - Time Time Spent with patient: Less than 15 minutes Anticipated discharge: Home - Okay for discharge home.
--- NOTE | 2017-05-27 20:25 | XCELERA REPORT ---
[address] [address] Transthoracic Echocardiogram Report Name: JASEN WARNER Age: 27 yrs Gender: Female : 1990 Patient Status: Inpatient Patient Location: [address] [place] [address] Study Date: 05/27/2017 09:51 AM Height: 63 in Weight: 154 lb BSA: 1.7 m2 Procedure: A complete two-dimensional transthoracic echocardiogram was performed (2D, M-mode, spectral and color flow Doppler). The study was technically adequate with some images being suboptimal in quality. Reason For Study: Dizziness Ordering Physician: MILKA MONTELONGO Performed By: Janina Zuniga Interpretation Summary The left ventricular ejection fraction is normal. Doppler measurements suggest normal left ventricular diastolic function The right ventricular systolic function is normal. The left atrial size is normal. The right atrium is normal in size There is a trace amount of mitral regurgitation There is no mitral valve stenosis. No aortic regurgitation is present. There is no aortic valve stenosis There is a trace or physiologic amount of tricuspid regurgitation Right ventricular systolic pressure is at the upper limits of normal There is no pericardial effusion. The inferior vena cava appeared normal and decreased < 50% with respiration (RAP 10-15 mmHg) MMode/2D Measurements & Calculations RVDd: 3.0 cm LVIDd: 4.8 cm FS: 36.0 % Ao root diam: 2.3 cm IVSd: 0.59 cm LVIDs: 3.1 cm EDV(Teich): 106.9 ml LVPWd: 0.59 cmESV(Teich): 36.9 ml Ao root area: 4.0 cm2 EF(Teich): 65.5 % LVOT diam: 1.7 cm LVOT area: 2.2 cm2 Doppler Measurements & Calculations MV E max lana: MV dec slope: Ao V2 max: LV V1 max P.0 cm/sec 661.8 cm/sec2 153.5 cm/sec 3.4 mmHg MV A max lana: MV dec time: Ao max PG: LV V1 max: 72.5 cm/sec 0.18 sec 9.4 mmHg 92.4 cm/sec MV E/A: 1.6 IRMA(V,D): 1.3 cm2 PA V2 max: PI end-d lana: TR max lana: 117.2 cm/sec 85.1 cm/sec 234.8 cm/sec PA max P.5 mmHg TR max P.1 mmHg Left Ventricle The left ventricle is grossly normal size. There is normal left ventricular wall thickness. The left ventricular ejection fraction is normal. Doppler measurements suggest normal left ventricular diastolic function. No regional wall motion abnormalities noted. Right Ventricle The right ventricle is grossly normal size. There is normal right ventricular wall thickness. The right ventricular systolic function is normal. Atria The right atrium is normal in size. The left atrial size is normal. Interarterial septum not well visualized and not well dopplered. Cannot comment on ASD/PFO presence. Mitral Valve The mitral valve is grossly normal. There is no mitral valve stenosis. There is a trace amount of mitral regurgitation. Aortic Valve The aortic valve is normal in structure and functions normally. There is no aortic valve stenosis. No aortic regurgitation is present. Tricuspid Valve The tricuspid valve is not well visualized, but is grossly normal. There is no tricuspid stenosis. There is a trace or physiologic amount of tricuspid regurgitation. Right ventricular systolic pressure is at the upper limits of normal. Pulmonic Valve The pulmonic valve is not well seen, but is grossly normal. Great Vessels The aortic root is not well visualized but is probably normal size. The inferior vena cava appeared normal and decreased < 50% with respiration (RAP 10-15 mmHg). Effusions There is no pericardial effusion. : MILKA MONTELONGOra, Shyamal
--- NOTE | 2017-05-31 17:07 | Delivery Summary ---
Del Sum A-C Datetime Report Generated by CPN: 05/31/2017 17:07 DELIVERY PERSONNEL DELIVERY PERSONNEL: [id number] Delivery Doctor:: Mickey Sotelo CNM Labor and Delivery Nurse:: Genesis Fang RN Labor and Delivery Nurse:: Argelia Cazares RN Web Database Developer:: Mary Beth Gates RN Batch Operator/STENCIL MACHINE OPERATOR: Tequila Martinez CNA Batch Operator/STENCIL MACHINE OPERATOR: Shannon Hall, ST MATERNAL INFORMATION Delivery Anesthesia: Epidural Medications After Delivery: Pitocin Bolus-Please Comment; Pitocin Drip 20 Units/1000ml NSS Maternal Complications: None Provider Comments: delivery of viable male apgars bulb suctioned on perineum nuchal cord x 1 loose compound right hand infant to abdomen tactile stimulation elicits spont cry placenta intact and to pathology for eval multiple clots uterus firming ebl 400 cc trailing membranes no lacerations pt bonding well with good pain management with epidural do to pelvic pain from fall earlier LABOR SUMMARY EDC: 06/07/2017 00:00 No. Babies in Womb: 1 Attempted: No Labor Anesthesia: Epidural LABOR INFORMATION Reason for Induction: Other Reason for Induction- Other: maternal fall/elective Onset of Labor: 05/24/2017 16:06 Complete Dilatation: 05/24/2017 21:52 Oxytocin: Induction Group B Beta Strep: Negative Antibiotics # of Doses: 0 Steroids Given: None Reason Steroids Not Administered: Not Applicable MEMBRANES Membranes Rupture Method: Artificial Rupture of Membranes: 05/24/2017 16:06 Length of Rupture (hr): 5.80 Amniotic Fluid Color: Bloody Amniotic Fluid Amount: Moderate Amniotic Fluid Odor: Normal STAGES OF LABOR Stage 1 hr: 5 Stage 1 min: 46 Stage 2 hr: 0 Stage 2 min: 2 Stage 3 hr: 0 Stage 3 min: 3 Total Time in Labor hr: 5 Total Time in Labor min: 51 VAGINAL DELIVERY Episiotomy: None Laceration #1: None Laceration Repair: No Laceration Repair: Not Applicable Sponge Count Correct: N/A; Vaginal Sweep Performed Sharps Count Correct: N/A CSECTION DELIVERY Primary Indication: N/A Secondary Indication: N/A CSection Incidence: N/A Labor: N/A Elective: N/A CSection Incision: N/A BABY A INFORMATION Delivery Date/Time: 05/24/2017 21:54 Infant Delivery Date/Time: 05/24/2017 21:54 Method of Delivery: Vaginal Method of Delivery: Vaginal Method of Delivery: Vaginal Born in Route : No : N/A Forceps: N/A Forceps: N/A Vacuum Extraction: N/A Vacuum Extraction: N/A Shoulder Dystocia : No Shoulder Dystocia : No PRESENTATION/POSITION BABY A Presentation: Cephalic Presentation: Cephalic Cephalic Presentation: Vertex Vertex Position: Right Occipital Anterior Breech Presentation: N/A PLACENTA INFORMATION BABY A Placenta Delivery Time : 05/24/2017 21:57 Placenta Method of Delivery: Spontaneous Placenta Status: Delivered SCORES BABY A Heart Rate 1 min: >100 bpm Resp Effort 1 min: Good Cry Reflex Irritability 1 min: Cough or Sneeze or Pulls Away Muscle Tone 1 min: Active Motion Color 1 min: Blue/Pale Resuscitation Effort 1 min: Tactile Stimulation SCORE 1 MIN: 8 Heart Rate 5 min: >100 bpm Resp Effort 5 min: Good Cry Reflex Irritability 5 min: Cough or Sneeze or Pulls Away Muscle Tone 5 min: Active Motion Color 5 min: Body Esperanza, Extremities Blue Resuscitation Effort 5 min: Tactile Stimulation SCORE 5 MIN: 9 INFANT INFORMATION BABY A Gestational Age at Delivery: 38.0 Gestational Status: Early Term- 37- 38.6 Weeks Infant Outcome : Liveborn Infant Condition : Stable Infant Condition : Stable Sex: Male Sex: Male Infant Sex: Male IDENTIFICATION BABY A Verification Date/Time: 05/24/2017 22:06 ID Band Number: [id number] Mother's Name Verified: Yes RN Verifying : B ShahTORIBIO Additional Verifying Personnel: D Carlos, /STENCIL MACHINE OPERATOR WEIGHT/LENGTH BABY A Infant Birthweight (gm): 2990 Infant Weight (lb): 6 Weight (oz): 9 Infant Length (in): 19.50 Length (cm): 49.53 CORD INFORMATION BABY A No. Cord Vessels: 3 Nuchal Cord : Around Neck x1, Loose Nuchal Cord- Other: right compound hand Cord Blood Taken: Yes-For Eval (Mom's Blood Type - or O+) Infant Suction: Mouth; Nose ASSESSMENT BABY A Infant Complications: Multiple Variable Decels Physical Findings at Delivery: Molding of the Head Respirations: Appears Normal Skin to Skin: Yes Carpenter Repairer/ALS Called : No Care By: Bakari Cazares RN and N Kody, TORIBIO Transferred To: Remains with Mother BABY B INFORMATION : N/A SIGNATURES Assignment: Luis Ortiz MD Signature: with User ID: Addis : with User ID: Addis
== END 2017-05-27 13:56 | disposition home or self-care (01) | DRG 775 ==
LOC: LC 09:17 → LR 15:17 → 2S 05-25 00:16
PROVIDERS: ADMIT Obstetrics & Gynecology Gynecology; ATTEND Obstetrics & Gynecology Gynecology
PROC: 10E0XZZ Delivery of Products of Conception, External Approach (ICD-10-PCS; principal; 2017-05-24)
PROC: 4A1HXCZ Monitoring of Products of Conception, Cardiac Rate, External Approach (ICD-10-PCS; 2017-05-24)
PROC: 3E033VJ Introduction of Other Hormone into Peripheral Vein, Percutaneous Approach (ICD-10-PCS; 2017-05-24)
DX: O24.429 Gestational diabetes mellitus in childbirth, unspecified control (principal); O69.81X0 Labor and delivery complicated by cord around neck, without compression, not applicable or unspecified; O76 Abnormality in fetal heart rate and rhythm complicating labor and delivery; O32.6XX0 Maternal care for compound presentation, not applicable or unspecified; Z91.81 History of falling; O99.344 Other mental disorders complicating childbirth; O99.02 Anemia complicating childbirth; D50.9 Iron deficiency anemia, unspecified; R55 Syncope and collapse; R06.02 Shortness of breath; F41.0 Panic disorder [episodic paroxysmal anxiety]; Z3A.38 38 weeks gestation of pregnancy; Z37.0 Single live birth
CPT/HCPCS: 36415; 59025; 71275; 76815; 80307; 81005; 85025; 85027; 85384; 85460; 85610; 85730; 86850; 86900; 86901; 88307; 93005; 93010; 93306; J2590; J3490; J7040

== ENCOUNTER → 2017-06-23 | Outpatient (CLI) | payer MEDICAID ==
[2017-06-23 11:43] LABS: A TYPE INFLUENZA AG NEGATIVE (NEGATIVE); B INFLUENZA AG NEGATIVE (NEGATIVE)
== END ==
LOC: OD 10:38
PROVIDERS: ATTEND Midwife
DX: J10.1 Influenza due to other identified influenza virus with other respiratory manifestations (principal)
CPT/HCPCS: 87804

== ENCOUNTER 2018-07-15 16:42 | Observation (INO) | payer BC ==
[~2018-07-15 16:42] MED LIST: SUCCINYLCHOLINE CHLORIDE INJ 200 MG/10 ML VIAL ONE
[2018-07-15 16:59] LABS: ABSOLUTE MONOCYTES (AUTO) 0.6 10^3/uL (0.1-1.4); BASOPHILS % (AUTO) 0.1 % (0-2); EOSINOPHILS % (AUTO) 0.1 % (0-6); MEAN CORPUSCULAR HEMOGLOBIN 31.5 pg (27.0-33.4); MEAN CORPUSCULAR HGB CONC 34.5 g/dL (32.0-36.0); MEAN CORPUSCULAR VOLUME 91 fl (80-97); MONOCYTES % (AUTO) 6.1 % (3-13); PLATELET COUNT 271 10^3/uL (150-450); RED BLOOD COUNT 2.53 10^6/uL (3.72-5.28); RED CELL DISTRIBUTION WIDTH 15.7 % (11.5-14.0); SEGMENTED NEUTROPHILS % (AUTO) 72.7 % (42-78); TOTAL CELLS COUNTED % (AUTO) 100 %; WHITE BLOOD COUNT 9.7 10^3/uL (4.0-10.5)
[2018-07-15] MEDS ORDERED: NORMAL SALINE 1000 ML 1,000 ML IV PRN (17:00)
[2018-07-15] MEDS ORDERED: NORMAL SALINE 1000 ML 1,000 ML IV ONE (17:07)
[2018-07-15 17:15] LABS: INTERNATIONAL RATION (INR) 0.97; PROTHROMBIN TIME 13.4 SEC (11.4-15.4)
[2018-07-15 17:21] LABS: ALANINE AMINOTRANSFERASE 17 U/L (9-52); ALBUMIN 3.7 g/dL (3.5-5.0); ALKALINE PHOSPHATASE 53 U/L (38-126); ANION GAP 12 (5-19); ASPARTATE AMINO TRANSFERASE 14 U/L (14-36); BILIRUBIN,DIRECT 0.2 mg/dL (0.0-0.4); BILIRUBIN,TOTAL 0.4 mg/dL (0.2-1.3); BLOOD UREA NITROGEN 10 mg/dL (7-20); CALCIUM 9.1 mg/dL (8.4-10.2); CARBON DIOXIDE 22 mmol/L (22-30); CHLORIDE 106 mmol/L (98-107); GLUCOSE 175 mg/dL (75-110); POTASSIUM 3.3 mmol/L (3.6-5.0); SODIUM 139.9 mmol/L (137-145); TOTAL PROTEIN 6.3 g/dL (6.3-8.2)
[2018-07-15] MEDS ORDERED: NORMAL SALINE 250 ML IV PRN (17:22)
--- NOTE | 2018-07-15 17:24 | PDOC H&P ---
History of Present Illness Admission Date/PCP: 07/15/2018 Patient complains of: vaginal bleeding recent miscarriage History of Present Illness: JASEN WARNER is a 28 year old female presents from home by EMS due to significant vaginal bleeding at home and known recent incomplete AB. She reports that she is and was not aware that she was then began bleeding on Wednesday. She was seen in the office on 07/13 and was only having minimal vaginal bleeding. US on 07/13 was noted to have no Gestational Sac and possible POC (thickened endo cavity with increased blood flow) with ES of 2.82cm. She was discharged from the office with expectant management. tonight she began bleeding again and has soaked greater than 10 pads in 2 hours. She reports dizziness and feeling faint. Past Medical History LMP: Gynecological Infection: No 1 Year: 2,010 Delivery: Spontaneous Vaginal Delivery 2 Year: 2,012 Delivery: Spontaneous Vaginal Delivery 3 Year: 2,015 Delivery: Spontaneous Vaginal Delivery 4 Year: 2,018 Delivery: Spontaneous Vaginal Delivery 5 Year: 2,019 Delivery: Other - incomplete SAB Cardiac Medical History: Denies: Coronary Artery Disease, Hypertension Neurological Medical History: Reports: Migraine Denies: Seizures Endocrine Medical History: Denies: Diabetes Mellitus Type 1, Diabetes Mellitus Type 2 Past Surgical History Past Surgical History: Reports: None Social History Information Source: Patient Lives with: Family Smoking Status: Never Smoker Frequency of Alcohol Use: None Drugs: None Hx Prescription Drug Abuse: No Family History Family History: Reviewed & Not Pertinent, CAD, Hyperlipidemia, Hypertension Parental Family History Reviewed: No Children Family History Reviewed: NA Sibling(s) Family History Reviewed.: NA Medication/Allergy Home Medications: Vit No.129/Iron/Folic [ One Daily Tablet] 1 tab PO DAILY 05/24/17 Allergies/Adverse Reactions: ibuprofen [From Motrin] Allergy (Verified 05/24/17 10:01) Review of Systems Constitutional: ABSENT: chills, fever(s), headache(s), weight gain, weight loss Gastrointestinal: ABSENT: abdominal pain, constipation, diarrhea, hematemesis, hematochezia, nausea, vomiting Genitourinary: PRESENT: other - vaginal bleeding. ABSENT: dysuria, hematuria Neurological: ABSENT: abnormal gait, abnormal speech, confusion, dizziness, focal weakness, syncope Physical Exam - Physical Exam General appearance: PRESENT: no acute distress, well-developed, well-nourished Head exam: PRESENT: atraumatic, normocephalic Neck exam: PRESENT: full ROM. ABSENT: carotid bruit, JVD, lymphadenopathy, thyromegaly Respiratory exam: PRESENT: clear to auscultation ella, symmetrical, unlabored Cardiovascular exam: PRESENT: RRR. ABSENT: diastolic murmur, rubs, systolic murmur GI/Abdominal exam: PRESENT: normal bowel sounds, soft. ABSENT: distended, guarding, mass, organolmegaly, rebound, tenderness Extremities exam: PRESENT: full ROM. ABSENT: calf tenderness, clubbing, pedal edema Neurological exam: PRESENT: alert, awake, oriented to person, oriented to place, oriented to time, oriented to situation, CN II-XII grossly intact. ABSENT: motor sensory deficit Skin exam: PRESENT: dry, intact, warm. ABSENT: cyanosis, rash - Obstetrical Exam External Genitalia: normal Vagina: normal, other - cvx open approx 2 cm and multiple large clots removed from cvx os then bleeding improved. Approx 100cc of blood in vault. Result Laboratory Results: 07/15/18 16:49 07/15/18 16:49 WBC 9.7 RBC 2.53 L Hgb 8.0 L Hct 23.0 L MCV 91 MCH 31.5 MCHC 34.5 RDW 15.7 H Plt Count 271 Seg Neutrophils % 72.7 Lymphocytes % 21.0 Monocytes % 6.1 Eosinophils % 0.1 Basophils % 0.1 Absolute Neutrophils 7.0 Absolute Lymphocytes 2.0 Absolute Monocytes 0.6 Absolute Eosinophils 0.0 Absolute Basophils 0.0 Status: Imported from PACS Assessment & Plan - Diagnosis (1) Incomplete Is this a current diagnosis for this admission?: Yes Plan: POC in os removed and sent to pathology. Stat US and if improved ES and able to use cytotec patient would prefer not to have surgery. will await US results. NPO for now. (2) Chronic iron deficiency anemia Is this a current diagnosis for this admission?: Yes Plan: is on PNV and iron as outpatient. (3) Anemia due to blood loss, acute Is this a current diagnosis for this admission?: Yes Plan: Acute bleeding with Incomplete SAB - needs transfusion. 2 units PRBC ordered. - Time Time Spent: 30 to 50 Minutes Critical Time spent with patient: Less than 15 minutes Medications reviewed and adjusted accordingly: Yes Anticipated discharge: Home Within: within 24 hours - Inpatient Certification Based on my medical assessment, after consideration of the patient's comorbidities, presenting symptoms, or acuity I expect that the services needed warrant INPATIENT care.: Yes I certify that my determination is in accordance with my understanding of Medicare's requirements for reasonable and necessary INPATIENT services [42 CFR 412.3e].: Yes Medical Necessity: Need Close Monitoring Due to Risk of Patient Decompensation, Need For IV Fluids, Need for Pain Control, Need for IV Antibiotics, Risk of Complication if Not Cared For in Hospital Post Hospital Care: D/C Flight Radio Operator Documentation
[2018-07-15] MEDS ORDERED: DOXYCYCLINE HYCLATE INJ 100 MG VIAL IV ONE (17:34)
[2018-07-15] MEDS ORDERED: HYDROMORPHONE HCL INJ/PF 2 MG/ML AMPULE IV PRN ×2 (17:35→21:40)
[2018-07-15] MEDS ORDERED: MISOPROSTOL 0.1 MG TABLET PR ONE (18:09)
--- NOTE | 2018-07-15 18:19 | RADIOLOGY REPORT (SQ) ---
EXAM DESCRIPTION: U/S OB TRANSVAGINAL W/O DOP COMPLETED DATE/TIME: 07/15/2018 5:56 pm REASON FOR STUDY: recent incomplete AB, now bleeding increased, POC? COMPARISON: None. TECHNIQUE: Dynamic and static grayscale images acquired of the pelvis via transvaginal approach and recorded on PACS. Additional selected color Doppler and spectral images recorded. LIMITATIONS: None. FINDINGS: UTERUS: Contour normal. No mass. ENDOMETRIAL STRIPE: Heterogeneous generalized endometrial thickening, 2.8 cm thickness. . CERVIX: No nabothian cysts. RIGHT OVARY AND DOPPLER: Normal size. No worrisome masses. Normal arterial vascular flow without evid ence for torsion. LEFT OVARY AND DOPPLER: Ovary not visualized. FREE FLUID: None noted. OTHER: No other significant finding. MEASUREMENTS: UTERUS: 13.1 x 6.8 x 7.8 cm ENDOMETRIAL STRIPE: 2.8 cm RIGHT OVARY: 4.2 x 2.9 x 1.8 Sen LEFT OVARY: Not visualized. IMPRESSION: Heterogeneous generalized endometrial thickening, 2.8 cm thickness. No IUP identified. Left ovary not visualized. No free fluid identified. TECHNICAL DOCUMENTATION: JOB ID: [id number] 2010 [employer]- All Rights Reserved Rev-10/01 Reading location - IP/workstation name: [email or web address]
--- NOTE | 2018-07-15 18:29 | ER Document Report ---
ED General - General Chief Complaint: Vaginal Bleeding Stated Complaint: POSSIBLE HEMORRHAGE Time Seen by Provider: 07/15/18 17:06 Mode of Arrival: Stretcher Information source: Patient Notes: 28-year-old female, comes in with vaginal bleeding. TRAVEL OUTSIDE OF THE [place] IN LAST 30 DAYS: No - HPI Onset: Just prior to arrival Onset/Duration: Sudden Quality of pain: Dull Severity: Moderate Pain Level: 2 Associated symptoms: Chest pain, Shortness of breath Exacerbated by: Denies Relieved by: Denies Similar symptoms previously: Yes Recently seen / treated by doctor: Yes - Related Data Allergies/Adverse Reactions: ibuprofen [From Motrin] Allergy (Verified 05/24/17 10:01) Past Medical History - General Information source: Patient - Social History Smoking Status: Never Smoker Cigarette use (# per day): No Chew tobacco use (# tins/day): No Frequency of alcohol use: None Drug Abuse: None Lives with: Family Family History: Reviewed & Not Pertinent, CAD, Hyperlipidemia, Hypertension - Past Medical History Cardiac Medical History: Denies: Hx Coronary Artery Disease, Hx Hypertension Neurological Medical History: Reports: Hx Migraine. Denies: Hx Seizures Endocrine Medical History: Denies: Hx Diabetes Mellitus Type 1, Hx Diabetes Mellitus Type 2 Renal/ Medical History: Denies: Hx Peritoneal Dialysis Past Surgical History: Reports: None - Immunizations Hx Diphtheria, Pertussis, Tetanus Vaccination: Yes Hx Pneumococcal Vaccination: 02/14/15 Review of Systems - Review of Systems Constitutional: denies: Chills, Fever EENT: No symptoms reported Cardiovascular: No symptoms reported Respiratory: No symptoms reported Gastrointestinal: No symptoms reported Genitourinary: See HPI Female Genitourinary: See HPI Musculoskeletal: No symptoms reported Skin: No symptoms reported Hematologic/Lymphatic: No symptoms reported Neurological/Psychological: No symptoms reported Physical Exam - Vital signs Vitals: Pulse Resp BP Pulse Ox 112 H 23 H 80/52 L 100 07/15/18 18:32 07/15/18 18:32 07/15/18 18:32 07/15/18 18:32 Notes: Physical exam: GENERAL: 28-year-old female, alert and oriented x3, blood pressure has been labile. HEAD: Atraumatic, normocephalic. EYES: Pupils equal round and reactive to light, extraocular movements intact, sclera anicteric, conjunctiva are normal. ENT: TMs normal, nares patent, oropharynx clear without exudates. Moist mucous membranes. NECK: Normal range of motion, supple without obvious mass or JVD. LUNGS: Breath sounds clear to auscultation bilaterally and equal. No wheezes rales or rhonchi. HEART: Regular rate and rhythm without murmurs, rubs or gallops. ABDOMEN: Soft, normoactive bowel sounds. No tenderness to palpation. No guarding, no rebound. No masses appreciated. Pelvic: Formal pelvic was performed by Dr. Brown at the bedside. On reassessment after the patient and dropped her pressure, limited exam showed blood from the vaginal canal with out obvious hemorrhage. EXTREMITIES: Normal range of motion, no pitting or edema. No clubbing or cyanosis. NEUROLOGICAL: Cranial nerves II through XII grossly intact. Normal speech, moving all extremities. PSYCH: Normal mood, normal affect. SKIN: Warm, Dry, normal turgor, no rashes or lesions noted. Course - Re-evaluation Re-evalutation: Discussed case with Dr. Brown and the plan was for blood transfusion given her anemia, and getting an ultrasound. If the ultrasound showed significant products of conception, the plan would be for taking the patient to the OR for D&C. I did call the parts identification technician and had the patient get her ultrasound at the bedside in the ER. It did show significant products of conception and I discussed the case with Dr. Brown is taking the patient to the OR. 07/15/18 21:53 Note: I was called into the room because the patient did drop her pressure. Patient clearly appears vagal when I came into the room. She does have 2 peripheral IVs and the crystalloid started on both those IVs. At that point, patient did have some blood from the office but there was no obvious hemorrhage. I did call the blood bank and let them know the condition of the patient that we wanted the blood soon and he was aware. I called Dr. Brown and let her k now about the blood pressure and the blood bank and the patient is going to be brought to the OR. - Vital Signs Vital signs: Temp Pulse Resp BP Pulse Ox 97.8 F 108 H 20 105/52 L 100 07/15/18 21:18 07/15/18 21:18 07/15/18 21:18 07/15/18 21:18 07/15/18 21:18 - Laboratory Result Diagrams: 07/15/18 16:49 07/15/18 16:49 Laboratory results interpreted by me: 07/15/18 07/15/18 07/15/18 16:49 16:49 16:49 RBC 2.53 L Hgb 8.0 L Hct 23.0 L RDW 15.7 H Potassium 3.3 L Glucose 175 H Hemoglobin A1c % 6.1 H Beta HCG, Quant 53404.00 H Crossmatch 07/15/18 18:00 RBC Hgb Hct RDW Potassium Glucose Hemoglobin A1c % Beta HCG, Quant Crossmatch See Detail Discharge - Discharge Clinical Impression: Vaginal bleeding, Anemia, Miscarriage Condition: Serious Disposition: ADMITTED INPATIENT Admitting Provider: [facility] - Dr. Brown Unit Admitted: OR
[2018-07-15] MEDS ORDERED: MISOPROSTOL 0.2 MG TABLET PR ONE (18:30)
[2018-07-15] MEDS ORDERED: MIDAZOLAM 2 MG/2 ML INJ ONE (18:43)
[2018-07-15] MEDS ORDERED: FENTANYL CITRATE INJ/PF 100 MCG/2 ML AMPUL ONE (18:43)
[2018-07-15] MEDS ORDERED: OXYTOCIN 10 UNIT/ML VIAL ONE (18:43)
[2018-07-15] MEDS ORDERED: PROPOFOL INJ 200 MG/20 ML VIAL IV ONE (18:43)
[2018-07-15] MEDS ORDERED: ONDANSETRON HCL INJ/PF 4 MG/2 ML SDV ONE (18:44)
[2018-07-15] MEDS ORDERED: DEXAMETHASONE SOD PHOSPHATE INJ 4 MG/1 ML VIAL ONE (18:44)
[2018-07-15] MEDS ORDERED: DOXYCYCLINE HYCLATE 100 MG in DEXTROSE 5%-WATER 250 ML IV ONE (19:00)
--- NOTE | 2018-07-15 19:41 | Brief Operative Note ---
BRIEF OPERATIVE REPORT DATE OF SURGERY: 07/15/18 TIME OF SURGERY: 19:00 PREOPERATIVE DIAGNOSIS: Incomplete spontaneous , Hemorrhage, Acute blood loss anemia POSTOPERATIVE DIAGNOSIS: AGUS SURGEON: HIRA GANDARA FINDINGS: cvx open 2 cm, another approximately 200ml plus of clot and active bleeding in vault, IVF 2000ml, UOP 200ml. 8wk uterus AV and boggy with improved tone after removal of products of conception. COMPLICATIONS: none ESTIMATED BLOOD LOSS: 25 TISSUE REMOVED OR ALTERED: products of conception TECHNICAL PROCEDURE: EUA, paracervical block, Suction Dilation and Curretage
--- NOTE | 2018-07-15 19:43 | Operative Report ---
Operative Report DATE OF SURGERY: 07/15/18 PREOPERATIVE DIAGNOSIS: Incomplete spontaneous , Hemorrhage, Acute blood loss anemia POSTOPERATIVE DIAGNOSIS: AGUS OPERATION: EUA, paracervical block, Suction Dilation and Curretage SURGEON: HIRA GANDARA ANESTHESIA: GA TISSUE REMOVED OR ALTERED: products of conception COMPLICATIONS: none ESTIMATED BLOOD LOSS: 25 INTRAOPERATIVE FINDINGS: cvx open 2 cm, another approximately 200ml plus of clot and active bleeding in vault, IVF 2000ml, UOP 200ml. 8wk uterus AV and boggy with improved tone after removal of products of conception. PROCEDURE: Anesthesia: [Louise Rendon MD, [facility] [place] CRNA] Anesthesia: GA IVF: [2000ml] UOP: [200ml] Indications: [28yo at unknown ega due to presents with known recent incomplete SAB and significant vaginal bleeding. Now severely anemia due to acute blood loss and need for transfusion. Reviewed need for urgent D&C and patient desired to proceed with planned procedure. The risks, benefits, alternatives reviewed and the patient desires to proceed with planned procedure.] Procedure: The patient was taken to the Operating Room where general anesthesia was obtained without difficulty. She was prepped and draped in the normal sterile fashion in the dorsal lithotomy position. Exam under anesthesia was performed and noted above. A speculum was placed in the vagina. The anterior cervix was grasped with a single-tooth tenaculum and the uterus sounded to [10cm] after paracervical block was performed with 8 mL of 1% lidocaine with epinephrine. The cervix was noted to be closed at the beginning of the procedure. Sequential dilators were then used to dilate the cervix to accommodate the the 8 mm suction curet curved. The 8 mm curved suction curet was gently advanced in the usual fashion and good return of tissue. The suction device was then activated and the curet rotated to clear the uterus of the products of conception. A sharp curettage was then performed. The suction device was then gently reintroduced and activated and the curet rotated to clear the uterus of conception which was loosened with recent sharp curettage. The sharp curettage was then performed again until a gritty texture was noted and the cavity was felt to be empty of further tissue. At this time there was minimal bleeding noted from the cervix. All instruments were removed from the patient's cervix and vagina. Silver nitrate was applied to the tenaculum site for hemostasis. Sponge lap needle and instrument counts are correct 2. Doxycycline 100 mg IV was given perioperatively. The patient tolerated the procedure well and was taken to the recovery area awake and in stable condition.
[2018-07-15] MEDS ORDERED: DIPHENHYDRAMINE HCL 50 MG/ML VIAL IV PRN (20:28)
[2018-07-15] MEDS ORDERED: PROMETHAZINE HCL INJ 25 MG/1 ML VIAL IV PRN ×2 (20:28)
[2018-07-15] MEDS ORDERED: MEPERIDINE HCL/PF INJ 25 MG/1 ML DISP.SYRIN IV PRN (20:28)
[2018-07-15] MEDS ORDERED: MORPHINE SULFATE 10 MG/ML INJ IV PRN (20:28)
[2018-07-15] MEDS ORDERED: FENTANYL CITRATE INJ/PF 100 MCG/2 ML AMPUL IV PRN ×3 (20:28)
[2018-07-15] MEDS ORDERED: ACETAMINOPHEN WITH CODEINE #3 TABLET PO PRN ×2 (21:39)
[2018-07-15] MEDS ORDERED: METHYLERGONOVINE MALEATE 0.2 MG TABLET ONE (22:43)
[2018-07-15] MEDS: METHYLERGONOVINE MALEATE 0.2 MG TABLET PO SCH (22:46)
[2018-07-15 22:52] LABS: APPEARANCE,URINE SLIGHTLY-CLOUDY; BILIRUBIN,URINE NEGATIVE (NEGATIVE); COLOR,URINE STRAW; GLUCOSE, URINE NEGATIVE (NEGATIVE); KETONES,URINE TRACE mg/dL (NEGATIVE); LEUKOCYTE ESTERASE,URINE NEGATIVE (NEGATIVE); NITRITE,URINE NEGATIVE (NEGATIVE); PROTEIN,URINE 30 mg/dL (NEGATIVE); UROBILINOGEN,URINE NEGATIVE mg/dL (<2.0)
[2018-07-16 00:41] LABS: CHLAM PCR NOT DETECTED (NOT DETECT); GON PCR NOT DETECTED (NOT DETECT)
[2018-07-16] MEDS ORDERED: METHYLERGONOVINE MALEATE 0.2 MG TABLET ONE (03:41)
[2018-07-16] MEDS: METHYLERGONOVINE MALEATE 0.2 MG TABLET PO SCH (03:48)
[2018-07-16 05:39] LABS: ABSOLUTE LYMPHOCYTES (AUTO) 1.2 10^3/uL (0.5-4.7); ABSOLUTE MONOCYTES (AUTO) 0.4 10^3/uL (0.1-1.4); ABSOLUTE NEUT (AUTO) 11.4 10^3/uL (1.7-8.2); HEMATOCRIT 25.5 % (36.0-47.0); HEMOGLOBIN 8.8 g/dL (12.0-15.5); LYMPHOCYTES % (AUTO) 9.1 % (13-45); MEAN CORPUSCULAR HEMOGLOBIN 30.8 pg (27.0-33.4); MEAN CORPUSCULAR HGB CONC 34.6 g/dL (32.0-36.0); MEAN CORPUSCULAR VOLUME 89 fl (80-97); MONOCYTES % (AUTO) 3.4 % (3-13); PLATELET COUNT 174 10^3/uL (150-450); RED BLOOD COUNT 2.85 10^6/uL (3.72-5.28); RED CELL DISTRIBUTION WIDTH 14.1 % (11.5-14.0); SEGMENTED NEUTROPHILS % (AUTO) 87.5 % (42-78); TOTAL CELLS COUNTED % (AUTO) 100 %; WHITE BLOOD COUNT 13.1 10^3/uL (4.0-10.5)
--- NOTE | 2018-07-16 07:15 | PDOC DISCHARGE SUMMARY ---
General - Admit/Disc Date/PCP Admission Date/Primary Care Provider: 07/15/18 18:43 Discharge Date: 07/16/18 - Discharge Diagnosis (1) Incomplete Is this a current diagnosis for this admission?: Yes Summary: s/p Suction D&C. Minimal bleeding. Continue methergine for the next 24 hours. F/u in the office early next week. (2) Chronic iron deficiency anemia Is this a current diagnosis for this admission?: Yes Summary: Plan to have patient f/u with Dr wilks or Behzad as an outpatient for probable iron infusions (3) Anemia due to blood loss, acute Is this a current diagnosis for this admission?: Yes Summary: s/p transfusion of 2 units. Pt feels much better. She is stable for discharge (4) Hypokalemia Is this a current diagnosis for this admission?: Yes Summary: yumiko hickey. Kdur for 3 days and will recheck with f/u in office early next week. - Additional Information Resuscitation Status: Full Code Discharge Diet: As Tolerated Discharge Activity: Activity As Tolerated Prescriptions: Acetaminophen with Codeine [Tylenol #3 Tablet] 2 each PO Q4HP PRN #28 tablet PRN Reason: For Pain Scale 1-3 Methylergonovine Maleate [Methergine 0.2 mg Tablet] 0.2 mg PO Q6A #3 tablet Home Medications: Norgestimate-Ethinyl Estradiol [Estarylla 0.25-0.035 mg Tablet] 1 tab PO DAILY 07/15/18 Acetaminophen with Codeine [Tylenol #3 Tablet] 2 each PO Q4HP PRN #28 tablet 07/16/18 Methylergonovine Maleate [Methergine 0.2 mg Tablet] 0.2 mg PO Q6A #3 tablet 07/16/18 History of Present Illness Patient complains of: , vaginal bleeding History of Present Illness: JASEN WARNER is a 28 year old female presents from home by EMS due to significant vaginal bleeding at home and known recent incomplete AB. She reports that she is and was not aware that she was then began bleeding on Wednesday. She was seen in the office on 07/13 and was only having minimal vaginal bleeding. US on 07/13 was noted to have no Gestational Sac and possible POC (thickened endo cavity with increased blood flow) with ES of 2.82cm. She was discharged from the office with expectant management. tonight she began bleeding again and has soaked greater than 10 pads in 2 hours. She reports dizziness and feeling faint. she was admitted for urgent D&C Hospital Course Hospital Course: 28 year old female presents from home by EMS due to significant vaginal bleeding at home and known recent incomplete AB. She reports that she is and was not aware that she was then began bleeding on Wednesday. She was seen in the office on 07/13 and was only having minimal vaginal bleeding. US on 07/13 was noted to have no Gestational Sac and possible POC (thickened endo cavity with increased blood flow) with ES of 2.82cm. She was discharged from the office with expectant management. tonight she began bleeding again and has soaked greater than 10 pads in 2 hours. She reports dizziness and feeling faint. she was admitted for urgent D&C due to significant bleeding and US with evidence of retained products. She underwent and uncomplicated Suction D&C and now with scant vaginal bleeding. She is feeling better after transfusion. Physical Exam - Physical Exam Vital Signs: Temp Pulse Resp BP Pulse Ox 99.1 F 89 18 114/63 100 07/16/18 04:24 07/16/18 04:24 07/16/18 04:24 07/16/18 04:24 07/16/18 04:24 Intake & Output 07/14/18 07/15/18 07/16/18 06:59 06:59 06:59 Intake Total 2780 Output Total 2775 Balance 5 Weight 145 kg General appearance: PRESENT: no acute distress, well-developed, well-nourished Head exam: PRESENT: atraumatic, normocephalic Respiratory exam: PRESENT: clear to auscultation ella, symmetrical, unlabored Cardiovascular exam: PRESENT: RRR. ABSENT: diastolic murmur, rubs, systolic murmur Vascular exam: PRESENT: normal capillary refill GI/Abdominal exam: PRESENT: normal bowel sounds, soft. ABSENT: distended, guarding, mass, organolmegaly, rebound, tenderness Rectal exam: PRESENT: deferred Extremities exam: PRESENT: full ROM. ABSENT: calf tenderness, clubbing, pedal edema Neurological exam: PRESENT: alert, awake, oriented to person, oriented to place, oriented to time, oriented to situation, CN II-XII grossly intact. ABSENT: motor sensory deficit Psychiatric exam: PRESENT: appropriate affect, normal mood. ABSENT: homicidal ideation, suicidal ideation Skin exam: PRESENT: dry, intact, warm. ABSENT: cyanosis, rash - Obstetrical Exam External Genitalia: normal Vagina: normal, other - cvx open approx 2 cm and multiple large clots removed from cvx os then bleeding improved. Approx 100cc of blood in vault. Result Laboratory Results: 07/16/18 04:40 07/15/18 16:49 07/15/18 07/15/18 07/15/18 16:49 16:49 18:00 WBC 9.7 RBC 2.53 L Hgb 8.0 L Hct 23.0 L MCV 91 MCH 31.5 MCHC 34.5 RDW 15.7 H Plt Count 271 Seg Neutrophils % 72.7 Lymphocytes % 21.0 Monocytes % 6.1 Eosinophils % 0.1 Basophils % 0.1 Absolute Neutrophils 7.0 Absolute Lymphocytes 2.0 Absolute Monocytes 0.6 Absolute Eosinophils 0.0 Absolute Basophils 0.0 Sodium 139.9 Potassium 3.3 L Chloride 106 Carbon Dioxide 22 Anion Gap 12 BUN 10 Creatinine 0.55 Est GFR ( Amer) > 60 Est GFR (Non-Af Amer) > 60 Glucose 175 H Calcium 9.1 Total Bilirubin 0.4 AST 14 ALT 17 Alkaline Phosphatase 53 Total Protein 6.3 Albumin 3.7 Urine Color Urine Appearance Urine pH Ur Specific [place] Urine Protein Urine Glucose (UA) Urine Ketones Urine Blood Urine Nitrite Ur Leukocyte Esterase Urine WBC (Auto) Urine RBC (Auto) Blood Type O POSITIVE Antibody Screen NEGATIVE 07/15/18 07/16/18 22:00 04:40 WBC 13.1 H RBC 2.85 L Hgb 8.8 L Hct 25.5 L MCV 89 MCH 30.8 MCHC 34.6 RDW 14.1 H Plt Count 174 Seg Neutrophils % 87.5 H Lymphocytes % 9.1 L Monocytes % 3.4 Eosinophils % 0.0 Basophils % 0.0 Absolute Neutrophils 11.4 H Absolute Lymphocytes 1.2 Absolute Monocytes 0.4 Absolute Eosinophils 0.0 Absolute Basophils 0.0 Sodium Potassium Chloride Carbon Dioxide Anion Gap BUN Creatinine Est GFR ( Amer) Est GFR (Non-Af Amer) Glucose Calcium Total Bilirubin AST ALT Alkaline Phosphatase Total Protein Albumin Urine Color STRAW Urine Appearance SLIGHTLY-CLOUDY Urine pH 6.0 Ur Specific [place] 1.010 Urine Protein 30 H Urine Glucose (UA) NEGATIVE Urine Ketones TRACE H Urine Blood LARGE H Urine Nitrite NEGATIVE Ur Leukocyte Esterase NEGATIVE Urine WBC (Auto) 5 Urine RBC (Auto) >182 Blood Type Antibody Screen Impressions: Obstetrics Ultrasound 07/15/18 17:20 IMPRESSION: Heterogeneous generalized endometrial thickening, 2.8 cm thickness. No IUP identified. Left ovary not visualized. No free fluid identified. Status: Imported from PACS
[2018-07-16 07:24] VITALS: BP 80/52
== END 2018-07-16 08:40 | disposition home or self-care (01) ==
LOC: ER 16:42 → EH 18:43 → INTOOBSV 18:43 → 2N 22:09
PROVIDERS: ADMIT Student in an Organized Health Care Education/Training Program; ATTEND Student in an Organized Health Care Education/Training Program
PROC: 10D17Z9 Manual Extraction of Products of Conception, Retained, Via Natural or Artificial Opening (ICD-10-PCS; 2018-07-15)
PROC: 30233N1 Transfusion of Nonautologous Red Blood Cells into Peripheral Vein, Percutaneous Approach (ICD-10-PCS; principal; 2018-07-15 19:00)
DX: O03.1 Delayed or excessive hemorrhage following incomplete spontaneous abortion (principal); D62 Acute posthemorrhagic anemia; D50.9 Iron deficiency anemia, unspecified; E87.6 Hypokalemia; R07.9 Chest pain, unspecified; R06.02 Shortness of breath
CPT/HCPCS: 99285; 86900; 86901; 36415 ×2; 36430; 86850; 84702 ×2; 85025 ×2; 85610; 80053; 81001; 83036; 86920; 87491; 87591; 88305 ×2; 76817; 59812; G0378 ×3; P9016; J2250; J1100; J3010; J3490 ×2; J2590; J0330; J2405; J7030; J2704; 1965